=== PATIENT | female | born 2000 | race Two or more races ===

== ENCOUNTER 2024-03-27 08:18 | Emergency (ER) | payer MEDICAID, SELFPAY ==
[2024-03-27 08:19] VITALS: BMI 43.5
--- NOTE | 2024-03-27 08:26 | XR_ITS ---
Examination: Complete OB ultrasound, less than 14 weeks, transabdominal Date and time of exam: March 27, 2024 0908 hours INDICATIONS: Onset pelvic cramping today Technique: Obstetrical ultrasound images less than 14 weeks performed via transabdominal imaging Findings: Uterus 6.9 x 3.6 x 4.7 cm No uterine mass or intrauterine gestation Endometrial stripe 1.7 cm Mild fluid in the cul-de-sac Right ovary 2.3 x 1.7 x 2.4 cm arterial flow small follicles Left ovary 2.5 x 2.6 x 2.4 cm arterial flow small follicles IMPRESSION: No uterine mass or intrauterine gestation Negative for ovarian torsion
[2024-03-27 09:00] LABS: Collection Type, Urine Clean Catch
[2024-03-27 09:08] LABS: Basophils % (Auto) 0 % (0-2.5); Eosinophils # (Auto) 0.1 Thou/mm3 (0.0-0.5); Eosinophils % (Auto) 1 % (0-10); Hematocrit 40.2 % (36.0-46.0); Hemoglobin 13.6 g/dL (12.0-16.0); Immature Granulocytes % (Auto) 0 % (0-0); Immature Granulocytes Auto 0.03 Thou/mm3 (0.00-0.00); Lymphocytes # (Auto) 3.5 Thou/mm3 (1.0-4.8); Lymphocytes % (Auto) 39 % (10-50); Mean Corpuscular HGB Conc 33.8 g/dl (31.0-37.0); Mean Corpuscular Volume 89 fL (80-100); Monocytes # (Auto) 0.5 Thou/mm3 (0.0-0.8); Monocytes % (Auto) 6 % (0-12); Neutrophils # (Auto) 4.8 Thou/mm3 (1.8-7.7); Neutrophils % (Auto) 54 % (37-80); Nucleated Red Blood Cell % 0 /100 WBC (0); Platelet Count 330 Thou/mm3 (140-440); RDW Standard Deviation 44.3 fL (36.4-46.3); Red Blood Count 4.53 Miln/mm3 (4.00-5.20); White Blood Count 8.9 Thou/mm3 (3.6-11.0)
--- NOTE | 2024-03-27 09:20 | XR_ITS ---
Examination: OB Transvaginal ultrasound of the pelvis, complete Technique: Transvaginal sonographic images pelvis performed using arias scale imaging Exam date and time: March 27, 2024 0922 hours INDICATIONS: Onset pelvic cramping today FINDINGS: Uterus 7.5 x 4.0 x 5.3 cm Endometrial stripe 15 mm No uterine mass or intrauterine gestation Right ovary 2.4 x 1.9 x 1.7 cm arterial flow Left ovary 2.6 x 2.1 x 2.1 cm arterial flow Mild fluid in the cul-de-sac IMPRESSION: No uterine mass or intrauterine gestation Negative for ovarian torsion.
[2024-03-27 09:27] LABS: Bacteria,Urine Rare; Bilirubin,Urine Negative (Negative); Blood,Urine Negative (Negative); Clarity,Urine Clear (Clear/Hazy); Color,Urine Colorless (Lt Yel-Yel); Glucose, Urine Negative (Negative); Hyaline Casts,Urine < 1 /hpf (0-1); Ketones,Urine Negative (Negative); Leukocyte Esterase,Urine Negative (Negative); Nitrite,Urine Negative (Negative); PH,Urine 6.5 (5.0-7.0); Protein,Urine Negative (Neg - Trace); RBC,Urine 2 /hpf (0-3); Specific Gravity,Urine 1.007 (1.001-1.035); Squamous Epithelial Cell,Urine 1 /hpf (0-5); Urobilinogen,Urine Negative mg/dL (0.0-1.0); WBC,Urine 1 /hpf (0-5)
[2024-03-27 09:29] LABS: Alanine Aminotransferase 20 U/L (10-49); Albumin, Serum 4.2 gm/dL (3.5-5.0); Albumin/Globulin Ratio 1.5 (1.2-2.2); Alkaline Phosphatase 67 U/L (46-116); Anion Gap 7 (7-16); Aspartate Amino Transferase 17 U/L (0-34); BUN/Creatinine Ratio 11 Ratio (12-20); Beta HCG,Quantitative 438 mIU/mL (<5.0); Bilirubin,Total 0.3 mg/dL (0.3-1.2); Blood Urea Nitrogen 9 mg/dL (9-23); Calcium 9.6 mg/dL (8.3-10.6); Calcium (Corrected) 9.6 mg/dL (8.5-10.1); Carbon Dioxide 24.9 mMol/L (20.0-31.0); Chloride 106 mMol/L (98-107); Creatinine (Component) 0.8 mg/dL (0.6-1.3); Globulin 2.8 gm/dL (2.3-3.5); Glucose 96 mg/dL (74-106); Osmolality,Calculated 274 (275-295); Sodium 138 mMol/L (136-145); eGFR > 60 See Note
--- NOTE | 2024-03-27 10:08 | EDNOTE_ITS ---
ED Abdominal Pain RME/HPI General Chief Complaint: Abdominal Pain Stated complaint: 5 WEEKS PREG ABD CRAMPING Time seen by provider: 03/27/24 08:20 Arrival date/time: 03/27/24 08:18 23-year-old female G1, presents emergency department today complains of pelvic cramping without bleeding patient for symptoms ongoing x 1 day Limitations: no limitations Related Data Previous Rx's ?Medication ?Instructions ?Recorded Phenazopyridine * (PYRIDIUM *) 200 mg PO TIDPC #6 tabs 11/11/16 ibuprofen 600 mg tablet 600 mg PO Q8HR PRN PAIN #30 tabs 11/11/16 ibuprofen 800 mg tablet (IBU) 800 mg PO Q8H #20 tabs 04/02/23 Allergies Allergy/AdvReac Type Severity Reaction Status Date / Time amoxicillin Allergy Severe Hives Verified 03/27/24 08:23 Review of Systems Review of Systems Systems Reviewed: All systems reviewed, normal except as documented Constitutional Constitutional: Reports system reviewed and no additional complaints, except as documented, Denies fever(s) and Denies headache(s) Eyes Eyes: Reports system reviewed and no additional complaints, except as documented and Denies blurry vision ENT Ears, Nose, Mouth, and Throat: Reports system reviewed and no additional complaints, except as documented, Denies headache(s), Denies nasal congestion and Denies nasal discharge Cardiovascular Cardiovascular: Reports system reviewed and no additional complaints, except as documented, Denies chest pain and Denies dyspnea Respiratory Respiratory: Reports system reviewed and no additional complaints, except as documented, Denies chest congestion, Denies cough and Denies dyspnea Gastrointestinal Gastrointestinal: Reports system reviewed and no additional complaints, except as documented and Denies abdominal pain Genitourinary Genitourinary: Reports system reviewed and no additional complaints, except as documented and Reports other (Pelvic pain) Integumentary/Breasts Skin/Breast: Reports system reviewed and no additional complaints, except as documented and Denies rash Neurologic Neurologic: Reports system reviewed and no additional complaints, except as documented, Reports as per HPI and Denies headache(s) Past Medical History Past Medical History NEUROLOGIC: Negative Neurological Disorders CARDIAC: Negative Cardiac Disorders ED Exam General Limitations: Present no limitations General appearance: Present alert and in no apparent distress Head Head exam: Present atraumatic Eye Eye exam: Present normal appearance, PERRL and EOMI ENT ENT exam: Present normal exam, normal oropharynx and mucous membranes moist Neck Neck exam: Present normal inspection, full ROM and trachea midline Chest Chest inspection: Present normal inspection and symmetric chest wall rise Respiratory Respiratory exam: Present normal lung sounds bilaterally Cardiovascular Cardiovascular exam: Present regular rate, normal rhythm and normal heart sounds Abdominal Exam Abdominal exam: Present soft and normal bowel sounds Extremities Exam Extremities exam: Present normal inspection and full ROM Back Exam Back exam: Present normal inspection and full ROM Neurological Exam Neurological exam: Present alert, oriented X3 and CN II-XII intact Psychiatric Psychiatric exam: Present normal affect and normal mood Skin Skin exam: Present warm, dry, intact and normal color Course Quality Measures none Orders Category Date Time Status US OB <= 14 weeks fetus Stat Exams 03/27/24 08:26 Completed US OB transvaginal Stat Exams 03/27/24 09:20 Completed ABO/RH Type Stat Lab 03/27/24 08:42 Completed Beta HCG,Quantitative Stat Lab 03/27/24 08:42 Completed CBC Stat Lab 03/27/24 08:42 Completed Comprehensive Metabolic Panel Stat Lab 03/27/24 08:42 Completed UA [Urinalysis] Stat Lab 03/27/24 08:40 Completed Urine Culture Stat Lab 03/27/24 08:40 Received Vital Signs Vital signs: O2 saturation 98% room air within normal limits Abdominal Pain MDM MDM Narrative MDM Narrative:: 23-year-old female G1, presents emergency department today complains of pelvic cramping without bleeding patient for symptoms ongoing x 1 day On exam patient well-appearing patient does not appear ill or toxic patient does not appear in acute distress On exam patient well-appearing patient denies any active bleeding patient hemodynamically stable Lab work and ultrasound obtained Ultrasound does not show any evidence of at this time but it may be because she is too early or she is having a miscarriage Baseline hCG obtained Patient is ready to have repeat hCG levels in 3 to 4 days for increased pain or any bleeding return immediately Patient data External records reviewed:: [facility] previous records Clinical information provided by:: patient Social determinants that could affect healthcare access:: none Patient has the following chronic illnesses:: None How is presenting disease/condition affected by chronic disease/condition?: no chronic disease Evaluation data The following diagnostics were reviewed and interpreted by me:: lab results and radiology exam(s) Lab and/or radiology exams considered but not ordered:: Labs and radiology obtained Interpretation Summary: Reviewed by me Medications / Prescriptions Medications or Prescriptions considered but not ordered:: Given no meds Medication administrations:: Given no meds Consultations Consultation(s) initiated? (list below): No Diagnosis Differential diagnosis abdominal pain: abdominal pain, gastroenteritis and other (Missed , threatened ) Most likely diagnosis given after review of the tests above:: Threatened Admission Indicated Admission indicated?: not indicated Admission Request Was there a request for admission?: No Disposition Plan Disposition Plan: Discharge Discharge Attestation Discharge Attestation: The patient and all family members were given an opportunity to ask questions an d understood the discharge instructions. Discharge instructions specifically effects, indications for sooner follow up or return to the emergency department, and the expected course of current diagnosis. Patient condition: Stable Discharge Plan Plan Patient Disposition: HOME (Self Care) Disposition Comment: Stable Prescriptions/Referrals Prescriptions/Med Rec: No Action ibuprofen 600 MG tablet 600 mg PO Q8HR PRN (Reason: PAIN) Qty: 30 0RF Phenazopyridine * (PYRIDIUM *) 200 MG tablet 200 mg PO TIDPC Qty: 6 0RF ibuprofen [IBU] 800 mg tablet 800 mg PO Q8H Qty: 20 0RF Referrals: Nawaf Child PA-C [Primary Care Provider] - 03/28/24 Problem List Clinical Impression: Pelvic pain affecting Patient/Caregiver Discharge Instructions Education Materials: Communicating About Pain Additional Instructions: Please repeat hCG level in 3 to 4 days for worsening symptoms return immediately Print Language: Uzbek Stand Alone Forms: Debbie Award Info., Work/School Release, Patient Portal Info Letter MARLEE/SOWMYA Supervising Physician VERNA Supervising Physician: Dr Vitale
[2024-03-27 10:19] VITALS: BP 130/67; PULSE 83; RESP 18; TEMP 37; O2SAT 99
== END 2024-03-27 10:22 | disposition home or self-care (01) ==
PROVIDERS: Nurse Practitioner Primary Care; Emergency Provider Emergency Medicine; PCP Physician Assistant
DX: O26.891 Other specified pregnancy related conditions, first trimester (principal); R10.2 Pelvic and perineal pain; Z3A.01 Less than 8 weeks gestation of pregnancy
CPT/HCPCS: 36415; 76801; 76817; 80053; 81001; 84702; 85025; 86900; 86901; 87086; 99284

== ENCOUNTER 2024-03-28 16:04 | Emergency (ER) | payer MEDICAID, SELFPAY ==
[2024-03-28 16:17] VITALS: BP 138/83; PULSE 77; RESP 20; TEMP 37.1; O2SAT 99; BMI 44.9
--- NOTE | 2024-03-28 16:24 | EDNOTE_ITS ---
ED OB Contraction Preg RMI/HPI General Chief complaint: Vaginal Bleeding Stated complaint: 5 weeks OB, vaginal bleeding Time Seen by Provider: 03/28/24 16:14 Arrival date/time: 03/28/24 16:04 23-year-old female approximately 5 weeks presents the emergency department complains of vaginal spotting patient was seen by myself yesterday patient reports she was nervous that she had an episode of bleeding today patient denies any current bleeding Limitations: no limitations Related Data Previous Rx's ?Medication ?Instructions ?Recorded Phenazopyridine * (PYRIDIUM *) 200 mg PO TIDPC #6 tabs 11/11/16 ibuprofen 600 mg tablet 600 mg PO Q8HR PRN PAIN #30 tabs 11/11/16 ibuprofen 800 mg tablet (IBU) 800 mg PO Q8H #20 tabs 04/02/23 Allergies Allergy/AdvReac Type Severity Reaction Status Date / Time amoxicillin Allergy Severe Hives Verified 03/27/24 08:23 Review of Systems Review of Systems Systems Reviewed: All systems reviewed, normal except as documented Constitutional Constitutional: Reports system reviewed and no additional complaints, except as documented, Denies fever(s) and Denies headache(s) Eyes Eyes: Reports system reviewed and no additional complaints, except as documented and Denies blurry vision ENT Ears, Nose, Mouth, and Throat: Reports system reviewed and no additional complaints, except as documented, Denies headache(s), Denies nasal congestion and Denies nasal discharge Cardiovascular Cardiovascular: Reports system reviewed and no additional complaints, except as documented, Denies chest pain and Denies dyspnea Respiratory Respiratory: Reports system reviewed and no additional complaints, except as documented, Denies chest congestion, Denies cough and Denies dyspnea Gastrointestinal Gastrointestinal: Reports system reviewed and no additional complaints, except as documented and Denies abdominal pain Genitourinary Genitourinary: Reports system reviewed and no additional complaints, except as documented and Reports abnormal vaginal bleeding Integumentary/Breasts Skin/Breast: Reports system reviewed and no additional complaints, except as documented and Denies rash Neurologic Neurologic: Reports system reviewed and no additional complaints, except as documented, Reports as per HPI and Denies headache(s) Past Medical History Past Medical History NEUROLOGIC: Negative Neurological Disorders CARDIAC: Negative Cardiac Disorders Social History SMOKING STATUS: Former smoker ED Exam General Limitations: Present no limitations General appearance: Present alert and in no apparent distress Head Head exam: Present atraumatic Eye Eye exam: Present normal appearance, PERRL and EOMI ENT ENT exam: Present normal exam, normal oropharynx and mucous membranes moist Neck Neck exam: Present normal inspection, full ROM and trachea midline Chest Chest inspection: Present normal inspection and symmetric chest wall rise Respiratory Respiratory exam: Present normal lung sounds bilaterally Cardiovascular Cardiovascular exam: Present regular rate, normal rhythm and normal heart sounds Abdominal Exam Abdominal exam: Present soft and normal bowel sounds Extremities Exam Extremities exam: Present normal inspection and full ROM Back Exam Back exam: Present normal inspection and full ROM Neurological Exam Neurological exam: Present alert, oriented X3 and CN II-XII intact Psychiatric Psychiatric exam: Present normal affect and normal mood Skin Skin exam: Present warm, dry, intact and normal color Course Quality Measures none Vital Signs Vital signs: Vital Signs Temperature 98.8 F 03/28/24 16:17 Pulse Rate 77 03/28/24 16:17 Respiratory Rate 20 03/28/24 16:17 Blood Pressure 138/83 H 03/28/24 16:17 Pulse Oximetry (%) 99 03/28/24 16:17 Oxygen Delivery Method Room Air 03/28/24 16:17 O2 saturation 99% room air within normal limits Vaginal Bleeding MDM Narrative MDM Narrative: 23-year-old female approximately 5 weeks presents the emergency department complains of vaginal spotting patient was seen by myself yesterday patient reports she was nervous that she had an episode of bleeding today patient denies any current bleeding Patient data External records reviewed:: [facility] previous records Clinical information provided by:: patient Social determinants that could affect healthcare access:: none Patient has the following chronic illnesses:: None How is presenting disease/condition affected by chronic disease/condition?: no chronic disease Evaluation data The following diagnostics were reviewed and interpreted by me:: other (specify) (N/A) Lab and/or radiology exams considered but not ordered:: Consider not ordered Interpretation Summary: N/A Medications / Prescriptions Medications or Prescriptions considered but not ordered:: No meds Medication administrations:: No meds Consultations Consultation(s) initiated? (list below): No Diagnosis Vaginal Bleeding Differential Diagnosis: missed and threatened Most likely diagnosis given after review of the tests above:: Threatened Admission Indicated Admission indicated?: not indicated Admission Request Was there a request for admission?: No Disposition Plan Disposition Plan: Discharge Discharge Attestation Discharge Attestation: The patient and all family members were given an opportunity to ask questions and understood the discharge instructions. Discharge instructions specifically effects, indications for sooner follow up or return to the emergency department, and the expected course of current diagnosis. Patient condition: Stable Discharge Plan Plan Patient Disposition: HOME (Self Care) Disposition Comment: Stable Prescriptions/Referrals Prescriptions/Med Rec: No Action ibuprofen 600 MG tablet 600 mg PO Q8HR PRN (Reason: PAIN) Qty: 30 0RF Phenazopyridine * (PYRIDIUM *) 200 MG tablet 200 mg PO TIDPC Qty: 6 0RF ibuprofen [IBU] 800 mg tablet 800 mg PO Q8H Qty: 20 0RF Problem List Clinical Impression: Threatened Patient/Caregiver Discharge Instructions Education Materials: ED Possible Miscarriage ... Additional Instructions: Please have repeat lab work and ultrasound in 3 to 4 days for worsening symptoms return immediately Print Language: Wolof Stand Alone Forms: Debbie Award Info., Patient Portal Info Letter PA/[employer] Supervising Physician MARLEE/SOWMYA Supervising Physician: Dr Vitale
== END 2024-03-28 17:29 | disposition home or self-care (01) ==
LOC: SERX 16:33
PROVIDERS: Emergency Provider Emergency Medicine; PCP Physician Assistant
DX: O20.0 Threatened abortion (principal); Z3A.01 Less than 8 weeks gestation of pregnancy
CPT/HCPCS: 99281

== ENCOUNTER 2024-06-24 10:38 | Emergency (ER) | payer MEDICAID, SELFPAY ==
[2024-06-24 11:30] VITALS: BP 112/74; PULSE 74; RESP 18; TEMP 37.1; O2SAT 100; BMI 47.5
--- NOTE | 2024-06-24 11:43 | XR_ITS ---
Examination: Complete OB ultrasound greater than 14 weeks Date and time of exam: June 24, 2024 at 1150 hrs. Indications: Pelvic pain beginning 7 days ago Findings: Viable intrauterine single fetus with single amniotic sac presentation breech Cardiac motion 155 BPM Placenta fundal grade 1 Umbilical cord insertion 3 vessel Amniotic fluid normal spine maternal right Cervix 3.1 cm Right ovary 2.3 cm arterial flow Left ovary 2.7 cm arterial flow. Composite estimated gestational age based on BPD, head circumference, abdominal circumference, femur length is 17 weeks 2 days Estimated weight 174 g. Survey of intracranial anatomy, spinal anatomy, abdominal anatomy, four-chamber heart performed with no abnormalities identified. Impression: Viable intrauterine gestation breech presentation No placental abruption.
--- NOTE | 2024-06-24 11:44 | EDNOTE_ITS ---
<Statement entered by Magdalene Day MD - 06/24/24 17:35> As co-signing physician, I was present and available for consult prn. I concur with the plan and care as documented by the midlevel provider. ED Abdominal Pain RME/HPI General Chief Complaint: Abdominal Pain Stated complaint: LOWER ABD PAIN Time seen by provider: 06/24/24 11:29 Arrival date/time: 06/24/24 10:38 RME / HPI RME / HPI narrative: 23-year-old female patient came in for evaluation regarding pelvic pain. Patient's been having pelvic pain for 1 week, described as sharp pain, severity moderate. Patient is 1 para 0, about 17 weeks . Patient denies any vaginal spotting or vaginal bleeding. Denies any dysuria frequency. Patient have not seen any FINANCIAL MANAGER. Patient denies any dysuria, frequency, constipation or diarrhea. Denies any vomiting denies any fever. Related Data Previous Rx's ?Medication ?Instructions ?Recorded Phenazopyridine * (PYRIDIUM *) 200 mg PO TIDPC #6 tabs 11/11/16 ibuprofen 600 mg tablet 600 mg PO Q8HR PRN PAIN #30 tabs 11/11/16 ibuprofen 800 mg tablet (IBU) 800 mg PO Q8H #20 tabs 0 04/02/23 nitrofurantoin 100 mg PO Q12H 7 days #14 ca ps 06/24/24 monohydrate/macrocrystals 100 mg capsule (Macrobid) Allergies Allergy/AdvReac Type Severity Reaction Status Date / Time amoxicillin Allergy Severe Hives Verified 03/27/24 08:23 Review of Systems Review of Systems Narrative Review of Systems: Review of system reviewed and within normal limits except mentioned in HPI ED Exam Narrative Physical exam: VITAL SIGNS: Reviewed. GENERAL APPEARANCE: Alert and interactive, follows commands, no acute distress,, morbid obesity HEAD AND FACE: Non-traumatic. ENT: PERRL, pink conjunctivitis, eyelid no trauma, Mucous membrane moist. NECK: Supple, nontender, no nuchal rigidity. CHEST: No tenderness, no crepitus, no paradoxical movement, no retractions. LUNGS: Clear, well ventilated, symmetric, no rales, no wheezing, no ronchi, no stridor, good breath sounds bilaterally. HEART: Regular rate, regular rhythm, no murmur, no gallops. ABDOMEN: Soft, positive bowel sounds, nondistended, no guarding, suprapubic tenderness, no rebound, no masses, RECTAL: Deferred. GENITAL: Deferred. NEUROLOGICAL: Gross motor function intact sensory function intact, Appropriate for age. MUSCULOSKELETAL: low back nontender, full range of motion. EXTREMITIES: Nontender, full range of motion. SKIN: Color pink, dry, no rash, no lacerations, no abrasions, no contusions. LYMPHATICS: Deferred. Course Quality Measures none Orders Category Date Time Status US OB >= 14 weeks Fetus Stat Exams 06/24/24 11:43 Taken ABO/RH Type Stat Lab 06/24/24 12:44 Completed Basic Metabolic Panel Stat Lab 06/24/24 12:44 Completed Beta HCG,Quantitative Stat Lab 06/24/24 12:44 Completed CBC Stat Lab 06/24/24 12:44 Completed Urinalysis Stat Lab 06/24/24 13:11 Completed Acetaminophen Tab [Tylenol ES Tab] Med 06/24/24 11:44 Discontinued 1,000 mg PO X1 ONE Vital Signs Vital signs: Vital Signs Temperature 98.7 F 06/24/24 11:30 Pulse Rate 74 06/24/24 11:30 Respiratory Rate 18 06/24/24 11:30 Blood Pressure 112/74 06/24/24 11:30 Pulse Oximetry (%) 100 06/24/24 11:30 Oxygen Delivery Method Room Air 06/24/24 11:30 Abdominal Pain MDM MDM Narrative MDM Narrative:: 23-year-old female patient came in for evaluation regarding pelvic pain. Patient's been having pelvic pain for 1 week, described as sharp pain, severity moderate. Patient is 1 para 0, about 17 weeks . Patient denies any vaginal spotting or vaginal bleeding. Denies any dysuria frequency. Patient have not seen any FINANCIAL MANAGER. Patient denies any dysuria, frequency, constipation or diarrhea. Denies any vomiting denies any fever. Laboratory workup significant for UTI otherwise unremarkable. Ultrasound of the showed single live intrauterine gestation about 7 2 weeks, heart rate of 155 bpm, results discussed with the patient. Patient appears nontoxic and hemodynamically stable. Patient discharged home and instructed to follow-up with primary care provider in 24 to 48 hours. Instructed to return to the emergency department immediately if worsening of symptoms Patient data External records reviewed:: None Clinical information provided by:: patient and family Social determinants that could affect healthcare access:: none Patient has the following chronic illnesses:: None How is presenting disease/condition affected by chronic disease/condition?: no chronic disease Evaluation data The following diagnostics were reviewed and interpreted by me:: lab results and radiology exam(s) Lab and/or radiology exams considered but not ordered:: None Interpretation Summary: See results in [facility] Medications / Prescriptions Medications or Prescriptions considered but not ordered:: None Medication administrations:: Medication Administration History Discontinued Medications Acetaminophen (Acetaminophen 500 Mg Tablet) 1,000 mg PO X1 ONE Stop: 06/24/24 11:45 Last Admin: 06/24/24 12:22 Dose: 1,000 mg Documented By: MARIA Tylenol Consultations Consultation(s) initiated? (list below): No Diagnosis Differential diagnosis abdominal pain: abdominal pain and other (Pelvic pain, UTI, ) Most likely diagnosis given after review of the tests above:: Pelvic pain, UTI, Admission Indicated Admission indicated?: not indicated Admission Request Was there a request for admission?: No Disposition Plan Disposition Plan: Discharge Discharge Attestation Discharge Attestation: The patient and all family members were given an opportunity to ask questions and understood the discharge instructions. Discharge instructions specifically effects, indications for sooner follow up or return to the emergency department, and the expected course of current diagnosis. Patient condition: Stable Discharge Plan Plan Patient Disposition: HOME (Self Care) Disposition Comment: stable Prescriptions/Referrals Prescriptions/Med Rec: New nitrofurantoin monohyd/m-cryst [Macrobid] 100 mg capsule 100 mg PO Q12H 7 Days Qty: 14 0RF Rx Instructions: must administer with a meal/food No Action ibuprofen 600 MG tablet 600 mg PO Q8HR PRN (Reason: PAIN) Qty: 30 0RF Phenazopyridine * (PYRIDIUM *) 200 MG tablet 200 mg PO TIDPC Qty: 6 0RF ibuprofen [IBU] 800 mg tablet 800 mg PO Q8H Qty: 20 0RF Referrals: Hernán Chadwick [Primary Care Provider] - In 1 week Problem List Clinical Impression: Pelvic pain, , UTI (urinary tract infection) Patient/Caregiver Discharge Instructions Discharge Activity: activity as tolerated Education Materials: Understanding Urinary Tract ... Additional Instructions: Thank you for the opportunity for serving you today. You are stable for discharged . You are advised to: Follow-up with your FINANCIAL MANAGER next week Return to ED for worsening of symptoms Increase oral fluids Take medication as prescribed Pelvic rest no sex for 1 week or until cleared by FINANCIAL MANAGER Print Language: Malaysian Stand Alone Forms: Debbie Award Info., Work/School Release, Patient Portal Info Letter
[2024-06-24] MEDS: ACETAMINOPHEN 500 MG TABLET 1000 MG PO (12:22)
[2024-06-24 13:16] LABS: Basophils % (Auto) 0 % (0-2.5); Eosinophils # (Auto) 0.1 Thou/mm3 (0.0-0.5); Eosinophils % (Auto) 1 % (0-10); Hematocrit 35.4 % (36.0-46.0); Hemoglobin 12.3 g/dL (12.0-16.0); Immature Granulocytes % (Auto) 0 % (0-0); Immature Granulocytes Auto 0.02 Thou/mm3 (0.00-0.00); Lymphocytes # (Auto) 2.1 Thou/mm3 (1.0-4.8); Lymphocytes % (Auto) 28 % (10-50); Mean Corpuscular HGB Conc 34.7 g/dl (31.0-37.0); Mean Corpuscular Hemoglobin 30.4 pg (25.0-35.0); Mean Corpuscular Volume 87 fL (80-100); Monocytes # (Auto) 0.3 Thou/mm3 (0.0-0.8); Monocytes % (Auto) 4 % (0-12); Neutrophils # (Auto) 4.9 Thou/mm3 (1.8-7.7); Neutrophils % (Auto) 66 % (37-80); Nucleated Red Blood Cell % 0 /100 WBC (0); Platelet Count 232 Thou/mm3 (140-440); RDW Standard Deviation 44.9 fL (36.4-46.3); Red Blood Count 4.05 Miln/mm3 (4.00-5.20); White Blood Count 7.5 Thou/mm3 (3.6-11.0)
[2024-06-24 13:19] LABS: Collection Type, Urine Clean Catch
[2024-06-24 13:44] LABS: Bacteria,Urine 3+; Bilirubin,Urine Negative (Negative); Blood,Urine Negative (Negative); Clarity,Urine Turbid (Clear/Hazy); Color,Urine Lt-Yellow (Lt Yel-Yel); Glucose, Urine Negative (Negative); Ketones,Urine 2+ (Negative); Leukocyte Esterase,Urine Positive (Negative); Nitrite,Urine Negative (Negative); PH,Urine 6.5 (5.0-7.0); Protein,Urine Negative (Neg - Trace); RBC,Urine 2 /hpf (0-3); Specific Gravity,Urine 1.014 (1.001-1.035); Squamous Epithelial Cell,Urine 3 /hpf (0-5); Urobilinogen,Urine Negative mg/dL (0.0-1.0); WBC,Urine 4 /hpf (0-5)
[2024-06-24 14:01] LABS: Anion Gap 8 (7-16); BUN/Creatinine Ratio 10 Ratio (12-20); Beta HCG,Quantitative 25556 mIU/mL (<5.0); Blood Urea Nitrogen 6 mg/dL (9-23); Calcium 8.6 mg/dL (8.3-10.6); Carbon Dioxide 23.5 mMol/L (20.0-31.0); Chloride 109 mMol/L (98-107); Creatinine (Component) 0.6 mg/dL (0.6-1.3); Estimated Creatinine Clearance 161.5 mL/min (>60); Glucose 133 mg/dL (74-106); Osmolality,Calculated 279 (275-295); Potassium 3.7 mMol/L (3.4-5.1); Sodium 140 mMol/L (136-145); eGFR > 60 See Note
== END 2024-06-24 16:40 | disposition home or self-care (01) ==
PROVIDERS: Nurse Practitioner Family; Emergency Provider Emergency Medicine; PCP Internal Medicine Hematology & Oncology
DX: O23.42 Unspecified infection of urinary tract in pregnancy, second trimester (principal); N39.0 Urinary tract infection, site not specified; Z3A.17 17 weeks gestation of pregnancy
CPT/HCPCS: 36415; 76805; 80048; 81001; 84702; 85025; 86900; 86901; 99284; A9270

== ENCOUNTER 2024-07-18 09:08 | Outpatient (AMB) | payer MEDICAID, SELFPAY ==
[2024-07-18 09:27] VITALS: BP 112/76; PULSE 76; RESP 18; TEMP 36.2; O2SAT 99; BMI 47.3
--- NOTE | 2024-07-18 09:27 | AMB.OBINITIA ---
Vital Signs 07/18/24 09:27 Height 1.52 m Height Method Stated Weight 109.429 kg Weight Measurement Method Standing Scale BMI 47.3 BP 112/76 Blood Pressure Source Automatic Cuff Blood Pressure Location Left Upper Arm Position Sitting Respiration 18 Pulse 76 Pulse Source Monitor Temp 97.2 F Temp Source Oral Pulse Oximetry (%) 99 Oxygen Delivery Method Room Air Allergies/Home Meds Allergies & Medications Allergies amoxicillin Allergy (Severe, Verified 08/17/24 09:55) Hives Intake Visit Data Collection New Patient or Established: Established Patient (seen at [facility] within 3 years) Reason for Visit:: First visit for , history of severe nausea and vomiting in early , current occasional vomiting with spicy or seasoned foods, heartburn Seen by Clinical Staff ONLY (RN/MA): No Client Success Director Required: No Do You Feel Safe at Home: Yes Authorities Contacted: N/A PCP or OBGYN visit in last 3 months: Yes Date of Last PCP or OBGYN visit: 06/24/24 Hx Now: Yes Are you currently on any form of Control: No Last menstrual period: 02/19/24 Pain Present Currently: No Pain Scale Used: [place]/Numerical Pain scale:: 0 Smoking Status Smoking Status: Never smoker Questionnaires Covid-19 Vaccine Questionnaire Has patient been vacinated for Covid-19 Have you been vacinated for Covid-19: Yes PHQ-9 PHQ-2 Over the last 2 weeks, how often have you been bothered by any of the following problems? 1. Little interest or pleasure in doing things: not at all 2. Feeling down, depressed, or hopeless: not at all Total score: 0 PHQ-9 3. Trouble falling or staying asleep, or sleeping too much: Not at all 4. Feeling tired or having little energy: Not at all 5. Poor appetite or overeating: Not at all 6. Feeling bad about yourself - or that you are a failure or have let yourself or your family down: Not at all 7. Trouble concentrating on things, such as reading the newspaper or watching television: Not at all 8. Moving or speaking so slowly that other people could have noticed? - Or the opposite - being so fidgety or restless that you have been moving around a lot more than usual: not at all 9. Thoughts that you would be better off or of hurting yourself in some way: Not at all Total score: 0 If you checked off any problems, how difficult have these problems made it for you to do your work, take care of things at home, or get along with other people?: not difficult at all Source: Developed by Drs. Nikhil Zimmer, Shazia Cancino, Kole Rojas and colleagues, with an educational wendie from [employer]. Depression screen completed yes Social History Living Situation History Marital Status: Single Lives With: Family Housing: House Tobacco History Smoking Status: Never smoker Second Hand Smoke Exposure: No Alcohol History Alcohol Intake: Former Domestic Abuse History Do You Feel Safe at Home: Yes Past Medical History Past Medical History Have you ever been diagnosed with any of the following: History of Present Illness HPI Narrative Terri CADET is a woman presenting for her first obstetric visit. Her last menstrual period was on February 18 or 2023, making her approximately 21 weeks and 3 days with an estimated due date of November 25, 2024. The patient reports experiencing severe nausea and vomiting early in her , stating she couldn't eat or drink anything and had constant vomiting. These symptoms have since improved, with the patient now reporting that she hardly vomit[s]. However, she still experiences occasional vomiting triggered by spicy or seasoned foods, which also cause heartburn. The patient mentions experiencing really bad pains at times, which have led her to visit the hospital 2-3 times. These episodes have been severe enough to affect her ability to work, prompting her to request documentation for her employer. This is the patient's first . She denies any current health issues or ongoing treatments at the time she became . The patient reports a history of high cholesterol years ago but no other significant medical history. She denies a history of diabetes or thyroid problems. The patient is not currently taking vitamins. The patient had a previous ultrasound at a different facility where she was informed the fetus is male, but no due date was provided at that time. She reports that her regular doctor had given her a due date of December 04, 2024. Obstetric History - GTPAL: G1 T0 L0 - Current : - Gestational age: 21 weeks and 5 days (confirmed by ultrasound) - Estimated due date: November 25, 2024 Medical History - High cholesterol (years ago) - Multiple emergency room visits (2-3 times) for severe pain during current Social History - Occupation: Employed, specific job not mentioned - Living Situation: Lives close to the clinic (implied by This is closer for you ) Review of Systems General: Positive for fatigue (implied by constant vomiting in early ). Gastrointestinal: Positive for nausea, vomiting (improved), and heartburn. Negative for current constant vomiting. Musculoskeletal: Positive for occasional severe pain affecting mobility. Estimated Due Date Summary LMP 02/18/2025 PETER by LMP 11/25/2024 Ultrasound #1 07/18/2024, 21w5d (bedside) PETER by US #1 11/23/2024 Final PETER 11/25/2024 Basis for Final PETER LMP OB Initial Visit OB Flowsheet OB Flowsheet Initial Weight: Not Recorded Date <del>?</del> EGA Weight BP Alb Glu CTX Pres Fundal ht FHR Mov Dilation Station Effacement Hx Notes Visit Note 07/18/24 <del>?</del> 21w 5d 109.429 kg 112/76 Estimated Due Date Summary LMP104/20/2024EDD by LMP11/25/2024 Ultrasound #104/, 21w5d (bedside)PETER by US #108 Final EDD11/25/2024asis for Final EDDLMP Menstrual History Menstrual reliability: approximate (month known) Flow: normal Menstrual regularity: regular Monthly: Yes Age at menarche: 7 On control pills at conception: No OB History : 1 Para: 0 Hx # Pregnancies: 0 Hx Total # of Abortions (Spontaneous & Elective): 0 # of Living Children: 0 Infection History & Risk Evaluation History of STDs: none HIV risk evaluation: low risk Hepatitis B risk evaluation: low risk Patient or partner has history of Genital Herpes: No Varicella/chicken pox status: immunized Genetic Screening & History Genetic Screening/Teratology Counseling - Includes patient, baby's father, or anyone in either family with: 1. Patient's age 35 years or older as of estimated date of delivery: No 2. Thalassemia (Citizen Of The [place], Beninese, Mediterranean, or Background); MCV less than 80: No 3. Neural Tube Defect (Meningomyelocele, Spina Bifida, or Anencephaly): No 4. Congenital Heart Defect: No 5. Down Syndrome: No 6. Gt-Sachs (Ashkenazi Denominational, Cajun, M[place]ese [place]): No 7. Angela Disease (Ashkenazi Denominational): No 8. Familial Dysautonomia (Ashkenazi Denominational): No 9. Sickle Cell Disease or Trait (): No 10. Hemophilia or other blood disorders: No 11. Muscular Dystrophy: No 12. Cystic Fibrosis: No 13. [place]'s Chorea: No 14. Mental Retardation/Autism: No 15. Other inherited genetic or chromosomal disorder: No 16. Maternal Metabolic Disorder (EG,TYPE 1 Diabetes, PKU): No 17. Patient or baby's father had a child with defects not listed above: No 18. Recurrent loss or a stillbirth: No 19. Medications (including supplements, vitamins, herbs or otc drugs)/illicit/recreational drugs/alcohol since last menstrual period: No 20. Any other: No Infection History 1. Live with someone with TB or exposed to TB: No 2. Rash or viral illness since last menstrual period: No 3. Hepatitis B,C: No Other (see comments) Source: [employer] Review of Systems Review of Systems Systems Reviewed: All systems reviewed, normal except as documented Exam General General Appearance: alert, in no apparent distress and healthy appearing Head Head exam: atraumatic Neck Neck exam: Present normal inspection and trachea midline Chest Chest inspection: Present normal inspection and symmetric chest wall rise External exam: Present normal external exam; Absent tenderness Neuro Neurological exam: Present oriented X3 Psych Psychiatric exam: Present normal affect and normal mood Results Objective Imaging: - Ultrasound (07/18/2024): - Gestational age: 21 weeks and 5 days - sex: Male - anatomy: Overall normal appearance - activity: Swallowing observed Office Procedures OB Clinic LOC & Office Proc's Nursing/Assessment Patient Status: Established Patient OB Clinic Nursing Assessment: BP Monitoring, Medication Reconciliation, Update PMH in EMR and Vital Signs OB Clinic Coordination of Care: Consent,records obtained, informed consent, Education Simp Pt/Fam, Lab and Imaging orders and Staff clarify orders Special Needs: Heart tones Established Patient Charge Established Patient Point Assignment: 120 Established Patient Point Charge: EP Level 4 (120-155) Bedside Ultrasounds US Transabdominal <14 weeks at bedside: Yes Assessment & Plan Diagnosis / Problem List (1) Supervision of high risk , unspecified, first trimester: Status: Acute Plan Terri CADET, at 21 weeks 5 days gestation, presenting for initial obstetric visit with history of severe nausea and vomiting in early , now improved. Intrauterine Assessment: Patient is a 19-year-old at 21 weeks 5 days gestation based on last menstrual period of February 19, 2024, and confirmed by ultrasound measurements. The appears to be progressing normally with heart tones detected and appropriate growth. The patient reports a history of severe nausea and vomiting in early , which has now improved. She continues to experience occasional vomiting with spicy or seasoned foods and reports episodes of abdominal pain that have led to multiple emergency department visits. Plan: - Referral for high-resolution ultrasound at [facility] in [place] for formal dating and anatomical survey - Order comprehensive labs including: - Blood type and Rh factor - Complete blood count for anemia screening - Infectious disease screening - Genetic screening for Down syndrome and other chromosomal abnormalities - Prescribe vitamins - Provide work note stating and due date - Advise patient to request FMLA forms from employer for completion at next visit - Follow-up as scheduled or sooner if concerns arise Nausea and vomiting of Assessment: Patient reports a history of severe nausea and vomiting in early that has significantly improved. She currently experiences occasional vomiting, primarily triggered by spicy or seasoned foods. The patient also reports heartburn associated with these episodes. 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 The exact nature and cause of these pain episodes are not clear from the available information. Plan: - Review emergency department records if available - Assess for any warning signs or symptoms at follow-up visits - Educate patient on when to seek immediate medical attention - Consider additional evaluation if pain persists or worsens Educated the patient on the importance of care, including taking vitamins with folic acid, iron, and calcium. Emphasized avoiding alcohol, smoking, and certain medications. Discussed common symptoms like nausea and fatigue, advising small, frequent meals and adequate hydration. Explained the need for regular check-ups and recommended safe physical activities. Instructed on signs of complications, such as severe cramping or bleeding, and when to seek immediate medical attention. Highlighted the importance of a balanced diet and avoiding high-risk foods. Encouraged open communication about any concerns or questions. Encouraged keeping up with all appointments and tests
== END 2024-07-18 09:45 | disposition home or self-care (01) ==
PROVIDERS: PCP Internal Medicine Gastroenterology; Referring Provider Internal Medicine Gastroenterology; Supervising Provider Obstetrics & Gynecology; Visit Provider Obstetrics & Gynecology
DX: O09.892 Supervision of other high risk pregnancies, second trimester (principal); Z3A.21 21 weeks gestation of pregnancy; O21.2 Late vomiting of pregnancy; O99.891 Other specified diseases and conditions complicating pregnancy; R10.9 Unspecified abdominal pain
CPT/HCPCS: 76801; 99214; G0463

== ENCOUNTER 2024-08-17 09:41 | Outpatient (AMB) | payer MEDICAID, SELFPAY ==
[2024-08-17 09:54] VITALS: BP 131/75; PULSE 66; RESP 18; TEMP 36.2; O2SAT 97; BMI 48.4
--- NOTE | 2024-08-17 09:54 | OBCLNT_ITS ---
Vital Signs 08/17/24 09:54 Height 1.52 m Height Method Stated Weight 112.037 kg Weight Measurement Method Standing Scale BMI 48.4 BP 131/75 H Blood Pressure Source Automatic Cuff Blood Pressure Location Left Upper Arm Position Sitting Respiration 18 Pulse 66 Pulse Source Monitor Temp 97.2 F Temp Source Oral Pulse Oximetry (%) 97 Oxygen Delivery Method Room Air Allergies/Home Meds Allergies & Medications Allergies amoxicillin Allergy (Severe, Verified 08/17/24 09:55) Hives Medication Reconciliation Phenazopyridine * (PYRIDIUM *) 200 mg PO TIDPC #6 tabs 11/11/16 [Rx Confirmed 08/17/24] ibuprofen 600 mg tablet 600 mg PO Q8HR PRN PAIN #30 tabs 11/11/16 [Rx Confirmed 08/17/24] ibuprofen 800 mg tablet (IBU) 800 mg PO Q8H #20 tabs 04/02/23 [Rx Confirmed 08/17/24] vitamin with calcium no.72-iron 27 mg-folic acid 1 mg tablet ( Plus (calcium carbonate)) 1 tab PO QDAY 90 days #90 tabs 07/18/24 [Rx Confirmed 08/17/24] Intake Visit Data Collection New Patient or Established: Established Patient (seen at [facility] within 3 years) Reason for Visit:: OBC Seen by Clinical Staff ONLY (RN/MA): No 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 1. Little interest or pleasure in doing things: not at all 2. Feeling down, depressed, or hopeless: not at all Total score: 0 PHQ-9 3. Trouble falling or staying asleep, or sleeping too much: Not at all 4. Feeling tired or having little energy: Not at all 5. Poor appetite or overeating: Not at all 6. Feeling bad about yourself - or that you are a failure or have let yourself or your family down: Not at all 7. Trouble concentrating on things, such as reading the newspaper or watching television: Not at all 8. Moving or speaking so slowly that other people could have noticed? - Or the opposite - being so fidgety or restless that you have been moving around a lot more than usual: not at all 9. Thoughts that you would be better off or of hurting yourself in some way: Not at all Total score: 0 If you checked off any problems, how difficult have these problems made it for you to do your work, take care of things at home, or get along with other people?: not difficult at all Source: Developed by Drs. Nikhil Zimmer, Shazia Cancino, Kole Rojas and colleagues, with an educational wendie from [employer]. 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 Medical History Past Medical History: No Hx Neurological Disorders and No Hx Cardiac Disorders Care OB Visit Log OB Flowsheet Initial Weight: Not Recorded Date -?-?-?-?-?-?-?-?-?-?-?-?- EGA Weight BP Alb Glu CTX Pres Fundal ht FHR Mov Dilation Station Effacement Hx Notes Visit Note 07/18/24 -?-?-?-?-?-?-?-?-?-?-?-?- 21w 5d 109.429 kg 112/76 Estimated Due Date Summary LMP104/20/2024EDD by LMP11/25/2024 Ultrasound #104, 21w5d (bedside) PETER by US #108 Final EDD5Basis for Final EDDLM P PETER Calculator Estimated Delivery Date Method Current WG Current Estimate 11/23/24 Ultrasound #1 26w 1d Other Estimates 11/25/24 LMP (Uncertain) 25w 6d Office Procedures OB Clinic LOC & Office Proc's Nursing/Assessment Patient Status: Established Patient OB Clinic Nursing Assessment: Medication Reconciliation, Update PMH in EMR and Vital Signs OB Clinic Coordination of Care: Education Complex Pt/Fam, Consent,records obtained, informed consent, Results/Orders obtained and Staff clarify orders Special Needs: Heart tones Established Patient Charge Established Patient Point Assignment: 100 Established Patient Point Charge: EP Level 3 (80-115)
== END 2024-08-17 10:26 | disposition home or self-care (01) ==
LOC: HODSOBC 09:41
PROVIDERS: PCP Obstetrics & Gynecology; Referring Provider Obstetrics & Gynecology; Supervising Provider Obstetrics & Gynecology; Visit Provider Obstetrics & Gynecology
DX: O09.892 Supervision of other high risk pregnancies, second trimester (principal); O16.2 Unspecified maternal hypertension, second trimester; O99.612 Diseases of the digestive system complicating pregnancy, second trimester; K92.1 Melena; O99.891 Other specified diseases and conditions complicating pregnancy; R12 Heartburn; M54.50 Low back pain, unspecified; Z3A.25 25 weeks gestation of pregnancy
CPT/HCPCS: 99213; G0463

== ENCOUNTER 2024-09-15 11:37 | Outpatient (AMB) | payer MEDICAID, SELFPAY ==
[2024-09-15 11:45] VITALS: BP 104/69; PULSE 69; RESP 17; TEMP 36.5; O2SAT 96; BMI 49.5
--- NOTE | 2024-09-15 11:45 | AMB.OBVISIT ---
Vital Signs 09/15/24 11:45 Height 1.52 m Height Method Measured Weight 114.475 kg Weight Measurement Method Standing Scale BMI 49.5 BP 104/69 Blood Pressure Source Automatic Cuff Blood Pressure Location Right Upper Arm Position Sitting Respiration 17 Pulse 69 Pulse Source Monitor Temp 97.7 F Temp Source Temporal Artery Scan Pulse Oximetry (%) 96 Oxygen Delivery Method Room Air Allergies/Home Meds Allergies & Medications Allergies amoxicillin Allergy (Severe, Verified 09/15/24 11:47) Hives Intake Visit Data Collection New Patient or Established: Established Patient (seen at [facility] within 3 years) Reason for Visit:: OBC Transmission Design Engineer Required: No Do You Feel Safe at Home: Yes Authorities Contacted: N/A PCP or OBGYN visit in last 3 months: Yes Date of Last PCP or OBGYN visit: 08/17/24 Hx Now: Yes Are you currently on any form of Control: No Pain Present Currently: No Pain Scale Used: [place]/Numerical Pain scale:: 0 Smoking Status Smoking Status: Never smoker Questionnaires Covid-19 Vaccine Questionnaire Has patient been vacinated for Covid-19 Have you been vacinated for Covid-19: No PHQ-9 PHQ-2 Over the last 2 weeks, how often have you been bothered by any of the following problems? 1. Little interest or pleasure in doing things: not at all 2. Feeling down, depressed, or hopeless: not at all Total score: 0 PHQ-9 3. Trouble falling or staying asleep, or sleeping too much: Not at all 4. Feeling tired or having little energy: Not at all 5. Poor appetite or overeating: Not at all 6. Feeling bad about yourself - or that you are a failure or have let yourself or your family down: Not at all 7. Trouble concentrating on things, such as reading the newspaper or watching television: Not at all 8. Moving or speaking so slowly that other people could have noticed? - Or the opposite - being so fidgety or restless that you have been moving around a lot more than usual: not at all 9. Thoughts that you would be better off or of hurting yourself in some way: Not at all Total score: 0 If you checked off any problems, how difficult have these problems made it for you to do your work, take care of things at home, or get along with other people?: not difficult at all Source: Developed by Drs. Nikhil Zimmer, Shazia Cancino, Kole Rojas and colleagues, with an educational wendie from [employer]. 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 Sono shows cephalic presentation with normal anatomy, EFW approx. 2.5?3 lbs. Plan: GTT before next visit, f/u sono in [place] 10/02, f/u visit after 10/04 to review results. Offered intro to other providers. PETER Calculator Estimated Delivery Date Method Current WG Current Estimate 11/23/24 Ultrasound #1 35w 3d Other Estimates 11/25/24 LMP (Uncertain) 35w 1d Office Procedures OB Clinic LOC & Office Proc's Nursing/Assessment Patient Status: Established Patient OB Clinic Nursing Assessment: Medication Reconciliation, Update PMH in EMR and Vital Signs OB Clinic Coordination of Care: Complex Care and Chronic Disease 1-5, Education Complex Pt/Fam, Consent,records obtained, informed consent, Lab and Imaging orders and Staff clarify orders Special Needs: Heart tones Established Patient Charge Established Patient Point Assignment: 135 Established Patient Point Charge: EP Level 4 (120-155) Assessment & Plan Diagnosis / Problem List (1) Supervision of high risk , unspecified, second trimester: Status: Acute
== END 2024-09-15 11:56 | disposition home or self-care (01) ==
LOC: HODSOBC 11:37
PROVIDERS: PCP Obstetrics & Gynecology; Referring Provider Obstetrics & Gynecology; Supervising Provider Obstetrics & Gynecology; Visit Provider Obstetrics & Gynecology
DX: O09.93 Supervision of high risk pregnancy, unspecified, third trimester (principal); Z3A.30 30 weeks gestation of pregnancy; Z88.0 Allergy status to penicillin
CPT/HCPCS: 99214; G0463

== ENCOUNTER 2024-10-31 10:37 | Outpatient (AMB) | payer MEDICAID, SELFPAY ==
[2024-10-31 10:59] VITALS: BP 108/69; PULSE 71; RESP 17; TEMP 36.5; O2SAT 97; BMI 51.5
--- NOTE | 2024-10-31 10:59 | OBCLNT_ITS ---
Vital Signs 10/31/24 10:59 Height 1.52 m Height Method Measured Weight 119.011 kg Weight Measurement Method Standing Scale BMI 51.5 BP 108/69 Blood Pressure Source Automatic Cuff Blood Pressure Location Right Upper Arm Position Sitting Respiration 17 Pulse 71 Pulse Source Monitor Temp 97.7 F Temp Source Temporal Artery Scan Pulse Oximetry (%) 97 Oxygen Delivery Method Room Air Allergies/Home Meds Allergies & Medications Allergies amoxicillin Allergy (Severe, Verified 11/07/24 12:05) Hives Medication Reconciliation vitamins with calcium no.72-iron 27 mg-folic acid 1 mg tablet ( Plus (calcium carbonate)) 1 tab PO QDAY 90 days #90 tabs 07/18/24 [Rx Confirmed 11/07/24] Intake Visit Data Collection New Patient or Established: Established Patient (seen at [facility] within 3 years) Reason for Visit:: OBC Consent obtained for Telemed Visit: No Seen by Clinical Staff ONLY (RN/MA): No Senior Administrator Support Required: No Do You Feel Safe at Home: Yes Authorities Contacted: N/A PCP or OBGYN visit in last 3 months: Yes Date of Last PCP or OBGYN visit: 09/15/24 Are you currently on any form of Control: Yes Pain Present Currently: No Pain Scale Used: [place]/Numerical Pain scale:: 0 Smoking Status Smoking Status: Never smoker Questionnaires Covid-19 Vaccine Questionnaire Has patient been vacinated for Covid-19 Have you been vacinated for Covid-19: No PHQ-9 PHQ-2 Over the last 2 weeks, how often have you been bothered by any of the following problems? 1. Little interest or pleasure in doing things: not at all PHQ-9 8. Moving or speaking so slowly that other people could have noticed? - Or the opposite - being so fidgety or restless that you have been moving around a lot more than usual: not at all Source: Developed by Drs. Nikhil Zimmer, Shazia Cancino, Kole Rojas and colleagues, with an educational wendie from [employer]. 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 Past Medical History: No Hx Neurological Disorders and No Hx Cardiac Disorders Care OB Visit Log OB Flowsheet Initial Weight: Not Recorded Date -?-?-?-?-?-?-?-?-?-?-?-?- EGA Weight BP Alb Glu CTX Pres Fundal ht FHR Mov Dilation Station Effacement Hx Notes Visit Note 07/18/24 -?-?-?-?-?-?-?-?-?-?-?-?- 21w 5d 109.429 kg 112/76 Estimated Due Date Summary LMP104/20/2024EDD by LMP11/25/2024 Ultrasound #104, 21w5d (bedside) PETER by US #108 Final EDD5Basis for Final EDDLM P 09/15/24 -?-?-?-?-?-?-?-?-?-?-?-?- 30w 1d 114.475 kg 104/69 occasional unknown 31 145 at 30w1d with improved back pain, good FM, FHR 130. Sono shows cephalic presentation with normal anatomy, EFW approx. 2.5?3 lbs. Plan: GTT before next visit, f/u sono in [place] 10/02, f/u visit after 10/04 to review results. Offered intro to other providers. 10/31/24 -?-?-?-?-?-?-?-?-?-?-?-?- 36w 5d 119.011 kg 108/69 occasional unknown 35 145 No contractions, LOF, VB and reports good FM. Denies MOODY, VC, and epigastric pain. - Schedule primary on November 16 at 12:30 PM due to breech presentation, pending review of ultrasound report from [facility] - Patient to perform self-administered v aginal swab - Follow up on ultrasound report from [facility] PETER Calculator Estimated Delivery Date Method Current WG Current Estimate 11/23/24 Ultrasound #1 39w 0d Other Estimates 11/25/24 LMP (Uncertain) 38w 5d Office Procedures OB Clinic LOC & Office Proc's Nursing/Assessment Patient Status: Established Patient OB Clinic Nursing Assessment: Medication Reconciliation, Update PMH in EMR and Vital Signs OB Clinic Coordination of Care: Complex Care and Chronic Disease 1-5, Consent,records obtained, informed consent, Education Simp Pt/Fam and 4+ Authorizations needed Special Needs: Heart tones Established Patient Charge Established Patient Point Assignment: 130 Established Patient Point Charge: EP Level 4 (120-155) Assessment & Plan Diagnosis / Problem List (1) Uterine size-date discrepancy in third trimester: Status: Acute (2) Supervision of high risk , unspecified, third trimester: Status: Acute
== END 2024-10-31 11:30 | disposition home or self-care (01) ==
LOC: HODSOBC 10:37
PROVIDERS: PCP Obstetrics & Gynecology; Referring Provider Obstetrics & Gynecology; Supervising Provider Obstetrics & Gynecology; Visit Provider Obstetrics & Gynecology
DX: O09.893 Supervision of other high risk pregnancies, third trimester (principal); O26.843 Uterine size-date discrepancy, third trimester; O32.1XX0 Maternal care for breech presentation, not applicable or unspecified; Z3A.36 36 weeks gestation of pregnancy; Z88.0 Allergy status to penicillin
CPT/HCPCS: 99214; G0463

== ENCOUNTER 2024-11-07 10:26 | Outpatient (AMB) | payer MEDICAID, SELFPAY ==
[2024-11-07 10:38] VITALS: BP 116/75; PULSE 84; RESP 17; TEMP 36.7; O2SAT 95; BMI 51.9
--- NOTE | 2024-11-07 10:38 | OBCLNT_ITS ---
Vital Signs 11/07/24 10:38 Height 1.52 m Height Method Measured Weight 119.918 kg Weight Measurement Method Standing Scale BMI 51.9 BP 116/75 Blood Pressure Source Automatic Cuff Blood Pressure Location Right Upper Arm Position Sitting Respiration 17 Pulse 84 Pulse Source Monitor Temp 98.1 F Temp Source Temporal Artery Scan Pulse Oximetry (%) 95 Oxygen Delivery Method Room Air Allergies/Home Meds Allergies & Medications Allergies amoxicillin Allergy (Severe, Verified 11/07/24 12:05) Hives Medication Reconciliation vitamins with calcium no.72-iron 27 mg-folic acid 1 mg tablet ( Plus (calcium carbonate)) 1 tab PO QDAY 90 days #90 tabs 07/18/24 [Rx Confirmed 11/07/24] Intake Visit Data Collection New Patient or Established: Established Patient (seen at [facility] within 3 years) Reason for Visit:: OBC Consent obtained for Telemed Visit: No Seen by Clinical Staff ONLY (RN/MA): No 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 1. Little interest or pleasure in doing things: not at all PHQ-9 8. Moving or speaking so slowly that other people could have noticed? - Or the opposite - being so fidgety or restless that you have been moving around a lot more than usual: not at all Source: Developed by Drs. Nikhil Zimmer, Shazia Cancino, Kole Rojas and colleagues, with an educational wendie from [employer]. 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 Past Medical History: No Hx Neurological Disorders and No Hx Cardiac Disorders Care OB Visit Log OB Flowsheet Initial Weight: Not Recorded Date -?-?-?-?-?-?-?-?-?-?-?-?- EGA Weight BP Alb Glu CTX Pres Fundal ht FHR Mov Dilation Station Effacement Hx Notes Visit Note 07/18/24 -?-?-?-?-?-?-?-?-?-?-?-?- 21w 5d 109.429 kg 112/76 Estimated Due Date Summary LMP104/20/2024EDD by LMP11/25/2024 Ultrasound #104, 21w5d (bedside) PETER by US #108 Final EDD11/25/2024asis for Final EDDLM P 09/15/24 -?-?-?-?-?-?-?-?-?-?-?-?- 30w 1d 114.475 kg 104/69 occasional unknown 31 145 at 30w1d with improved back pain, good FM, FHR 130. Sono shows cephalic presentation with normal anatomy, EFW approx. 2.5?3 lbs. Plan: GTT before next visit, f/u sono in [place] 10/02, f/u visit after 10/04 to review results. Offered intro to other providers. 10/31/24 -?-?-?-?-?-?-?-?-?-?-?-?- 36w 5d 119.011 kg 108/69 occasional unknown 35 145 No contractions, LOF, VB and reports good FM. Denies MOODY, VC, and epigastric pain. - Schedule primary on November 16 at 12:30 PM due to breech presentation, pending review of ultrasound report from [facility] - Patient to perform self-administered v aginal swab - Follow up on ultrasound report from [facility] 11/07/24 -?-?-?-?-?-?-?-?-?-?-?-?- 37w 5d 119.918 kg 116/75 occasional breech 38 145 Patient reports contractions and back pain. Reports good FM. Denies MOODY, VC, and epigastric pain. Problem List - Breech presentation - , 37 weeks and 5 days - Low back pain Plan - Patient to proceed to 4th floor of [facility] for monitoring and evaluation - Nurses to be notified of patient's arr ival - Patient to be monitored and rechecked after 2 hours to assess for labor progression - If labor is progressing, patient may d eliver today - If not delivering today, scheduled C-s ection on November 16 at 12:30 PM (patient to arrive at 10:00 AM) - No food, drink, or medications after m idnight the night before PETER Calculator Estimated Delivery Date Method Current WG Current Estimate 11/23/24 Ultrasound #1 39w 0d Other Estimates 11/25/24 LMP (Uncertain) 38w 5d Office Procedures OB Clinic LOC & Office Proc's Nursing/Assessment Patient Status: Established Patient OB Clinic Nursing Assessment: Medication Reconciliation, Update PMH in EMR and Vital Signs OB Clinic Coordination of Care: Complex Care and Chronic Disease 1-5, Education Complex Pt/Fam, Consent,records obtained, informed consent, 4+ Authorizations needed and Results/Orders obtained Special Needs: Heart tones Established Patient Charge Established Patient Point Assignment: 140 Established Patient Point Charge: EP Level 4 (120-155) Assessment & Plan Diagnosis / Problem List (1) UTI in : Status: Acute (2) Supervision of high risk , unspecified, third trimester: Status: Acute
== END 2024-11-07 11:04 | disposition home or self-care (01) ==
LOC: HODSOBC 10:26
PROVIDERS: Supervising Provider Obstetrics & Gynecology; Visit Provider Obstetrics & Gynecology
DX: O09.893 Supervision of other high risk pregnancies, third trimester (principal); O23.43 Unspecified infection of urinary tract in pregnancy, third trimester; O32.1XX0 Maternal care for breech presentation, not applicable or unspecified; Z3A.37 37 weeks gestation of pregnancy; Z88.0 Allergy status to penicillin
CPT/HCPCS: 99214; G0463

== ENCOUNTER 2024-11-07 11:29 | Observation (INO) | payer MEDICAID, SELFPAY ==
[2024-11-07] VITALS (27 sets, daily range): BP systolic 117; BP diastolic 66; PULSE 73–98; RESP 20–98; TEMP 37.1; O2SAT 91–99; BMI 51.5
[2024-11-07] MEDS: RINGERS LACTATED 1000 ML 1,000 ML 999 ML IV (11:35)
--- NOTE | 2024-11-07 11:43 | XR_ITS ---
Examination: age Limited TECHNIQUE: Limited transabdominal sonographic images pelvis INDICATIONS: Pelvic pressure today FINDINGS: Viable intrauterine gestation breech presentation spine maternal right Cervix 3.4 cm closed Cardiac motion 132 BPM IMPRESSION: Viable intrauterine gestation breech presentation
[2024-11-07] MEDS: RINGERS LACTATED 1000 ML 1,000 ML 100 ML IV (12:14)
== END 2024-11-07 13:45 | disposition home or self-care (01) ==
PROVIDERS: Admitting Provider Obstetrics & Gynecology; Visit Provider Obstetrics & Gynecology
DX: O47.1 False labor at or after 37 completed weeks of gestation (principal); Z3A.37 37 weeks gestation of pregnancy; O32.1XX0 Maternal care for breech presentation, not applicable or unspecified
CPT/HCPCS: 59025; 59899; 76815; J7120

== ENCOUNTER 2024-11-16 10:17 | Inpatient (IN) | payer MEDICAID, SELFPAY ==
[2024-11-16] VITALS (12 sets, daily range): BP systolic 102–144; BP diastolic 58–104; PULSE 77–99; RESP 12–24; TEMP 36.4–36.9; O2SAT 96–99; BMI 40.6
--- NOTE | 2024-11-16 10:22 | XR_ITS ---
Examination: age Limited TECHNIQUE: Limited transabdominal sonographic images pelvis Date and time: November 16, 2024 1027 hours INDICATIONS: Breech presentation on ultrasound November 07, 2024 FINDINGS: Viable intrauterine gestation breech presentation spine maternal right. Cervix 3.6 cm closed Cardiac motion 1:30 BPM IMPRESSION: Viable intrauterine gestation breech presentation
[2024-11-16] MEDS: RINGERS LACTATED 1000 ML 1,000 ML 100 ML IV ×2 (11:20→12:46)
--- NOTE | 2024-11-16 11:25 | ESHP_ITS ---
Documentation for date of: 11/16/24 OB Labor/Induct. HPI History of Present Illness Chief complaint: for breech : 1 Term pregnancies: 0 pregnancies: 0 Living children: 0 History of Abortions: Spontaneous and Elective: 0 History of sections: No History of : No History of present illness: Terri Rosario is a 37-year-old at 39 weeks gestation who presents for scheduled section due to persistent breech presentation confirmed by ultrasound earlier today. The patient was last seen at 37w5d for routine care and reported mild contractions and constant back pain as well as difficulty moving due to discomfort. She denies LOF, headache, visual changes, or epigastric pain. movements remained reassuring. The patient is otherwise stable and scheduled for delivery at 12:30 PM. Review of Systems Review of Systems Systems Reviewed: All systems reviewed, normal except as documented Past Medical History Surgical History SURGICAL: Negative Section Meds Home Medications and Allergies Allergies Allergy/AdvReac Type Severity Reaction Status Date / Time amoxicillin Allergy Severe Hives Verified 11/07/24 12:05 OB Exam Physical Exam Vital signs: Pulse BP 77 121/58 L 11/16/24 11:01 11/16/24 11:01 Constitutional Constitutional: no acute distress Routine HEENT Exam Head: Present normocephalic and atraumatic Eye: Present EOMI and PERRL ENT: Present mucous membranes moist Routine Neck Exam Neck: Present supple and trachea midline Routine Cardiovascular Exam Cardiovascular: Present RRR Routine Abdominal Exam Abdominal: Present soft and normoactive bowel sounds Detailed Labor and Delivery Exam Dilation (cm): 0 Baseline heart rate: 145 monitor accelerations: 15x15 monitor decelerations: None Routine Extremities Exam Extremities: Present full ROM Routine Skin Exam Skin: Present intact, dry and warm Routine Neurological Exam Neurological: Present alert, oriented X3 and CN II-XII intact Routine Psychiatric Exam Psychiatric: Present normal affect and normal thought process OB Assessment & Plan Assessment and Plan (1) Supervision of high risk , unspecified, third trimester: Status: Acute (2) Breech presentation of fetus: Status: Acute Assessment and plan: Assessment: 39w0d with breech presentation, scheduled for primary low-transverse section today. No signs of labor currently requiring emergent delivery, but patient was uncomfortable with mild contractions at previous visit. status reassuring. Labs within normal limits. Plan: * Proceed with scheduled at 12:30 PM today * NPO since midnight * Routine pre-operative checklist * Continue to monitor heart rate until transfer to OR * Notify anesthesia and nursing team * team on standby * Plan for routine recovery
[2024-11-16 11:45] LABS: Basophils # (Auto) 0.0 Thou/mm3 (0.0-0.2); Basophils % (Auto) 0 % (0-2.5); Eosinophils # (Auto) 0.0 Thou/mm3 (0.0-0.5); Eosinophils % (Auto) 0 % (0-10); Hematocrit 30.7 % (36.0-46.0); Hemoglobin 10.4 g/dL (12.0-16.0); Immature Granulocytes Auto 0.07 Thou/mm3 (0.00-0.00); Lymphocytes # (Auto) 2.8 Thou/mm3 (1.0-4.8); Lymphocytes % (Auto) 24 % (10-50); Mean Corpuscular HGB Conc 33.9 g/dl (31.0-37.0); Mean Corpuscular Hemoglobin 28.6 pg (25.0-35.0); Mean Corpuscular Volume 84 fL (80-100); Monocytes # (Auto) 0.5 Thou/mm3 (0.0-0.8); Monocytes % (Auto) 4 % (0-12); Neutrophils # (Auto) 8.3 Thou/mm3 (1.8-7.7); Neutrophils % (Auto) 71 % (37-80); Nucleated Red Blood Cell # 0.00 Thou/mm3 (0.00-0.00); Nucleated Red Blood Cell % 0 /100 WBC (0); Platelet Count 295 Thou/mm3 (140-440); RDW Standard Deviation 43.4 fL (36.4-46.3); Red Blood Count 3.64 Miln/mm3 (4.00-5.20); White Blood Count 11.7 Thou/mm3 (3.6-11.0)
[2024-11-16 12:21] LABS: Syphilis Nonreactive (Nonreactive)
--- NOTE | 2024-11-16 12:38 | PD.GYNPROC ---
Operative Note - DOCTOR OF NATUROPATHIC MEDICINE Procedure Date of procedure: 11/16/24 Procedure Performed: Primary low-transverse section Indication: 24-year-old 1 para 0 at 39 weeks with breech presentation Anesthesia type: Spinal Procedure description: Informed consent was obtained. The patient was brought to the operating room and identified with two patient identifiers. She was placed in the supine position, and spinal anesthesia was administered. After confirming adequate anesthesia, the abdomen and perineum were prepped and draped in the usual sterile fashion. A Lemus catheter was inserted for continuous bladder drainage. A low transverse (Pfannenstiel) skin incision was made using a scalpel and carried through subcutaneous tissue to the rectus fascia. The previous scar was identified and excised in its entirety. The fascia was incised transversely and dissected off the rectus muscles both superiorly and inferiorly. The rectus bellies were in the midline, and the peritoneum was entered bluntly with the surgeon?s finger. The peritoneal opening was extended to allow adequate exposure. An Dixon O-ring retractor was placed for optimal visualization. The lower uterine segment was palpated, and the bladder flap was reflected inferiorly. A low transverse uterine incision (Ed Araya) was made with a scalpel and extended bluntly. The amniotic membranes were ruptured, and clear fluid was released. The fetus was noted to be in breech presentation. The was delivered by breech extraction without difficulty. The shoulders and head were delivered smoothly with gentle traction. The umbilical cord was doubly clamped and cut, and the was handed to the awaiting team. Cord gases were obtained. The placenta was delivered with gentle traction on the cord. The uterine cavity was cleared of membranes and clots. The hysterotomy angles were secured with Allis clamps. Persistent bleeding was noted from the left uterine artery. Hemostasis was achieved with placement of compression sutures using 0 Vicryl. The uterine incision was closed in two layers using #1 Monocryl: the first layer was a running locked suture to approximate the myometrium, and the second layer imbricated the serosa and myometrium. Hemostasis was confirmed. The Dixon retractor was removed. Peritoneal edges and rectus muscles were reapproximated. Rectus fascia was closed with running 0 Vicryl. The subcutaneous tissue was irrigated with warm saline, and bleeding points were cauterized using Bovie electrocautery. Subcutaneous tissue was approximated with 3-0 Vicryl. The skin was closed using 4-0 MOnocryl in a subcuticular fashion. A sterile dressing was applied. The patient was cleaned, undraped, and transferred to the recovery room in stable and awake condition. She tolerated the procedure well. All counts were correct ?2. Specimen: none Estimated blood loss (ml): 600 Complications: none Surgical staff Operation Date: 11/16/24 12:45 <No data on this case meets the specified criteria> Diagnosis Discharge Diagnosis (1) Breech presentation of fetus: Status: Acute Problem List Completed Was Problem List Reviewed/Reconciled?: Yes
[2024-11-16] MEDS: FAMOTIDINE INJ 10 MG/ML VIAL 2 ML 20 MG IV (12:47)
[2024-11-16] MEDS: CITRIC ACID/SODIUM CITR 15 ML UDC (BICITRA) 30 ML PO (12:47)
[2024-11-16 13:00] LABS: Amphetamine/Metham Scrn,Ur OB Negative (Negative); Benzoylecgonine Screen, Ur OB Negative (Negative); Opiate Screen,Urine OB Negative (Negative); THC Screen,Urine OB Negative (Negative)
[2024-11-16] MEDS: CLINDAMYCIN 900MG IVPB 900 MG in PRE-MIXED 1 BAG 50 MG IV (13:20)
--- NOTE | 2024-11-16 13:40 | PD.LDDELS ---
Data ([place]) Data Hx Section: No : 1 Term: 0 : 0 Livin Abortions: Spontaneous & Theraputic: 0 Delivery Data (Avery) Delivery Data Delivered by: Anesthesia Type Anesthesia type: Spinal
[2024-11-16] MEDS: OXYTOCIN in NS 20 units 20 UNIT/1,000 ML BAG 125 UNIT IV (17:21)
[2024-11-17] VITALS: BP 117/74; PULSE 96; RESP 16; TEMP 36.4; O2SAT 95
[2024-11-17] MEDS: KETOROLAC INJ 30 MG/ML VIAL IVP (01:27)
[2024-11-17] MEDS: OXYTOCIN in NS 20 units 20 UNIT/1,000 ML BAG 125 UNIT IV (01:28)
[2024-11-17] MEDS: SIMETHICONE 80 MG CHEW PO (01:29)
[2024-11-17 05:00] VITALS: BP 101/64; PULSE 76; RESP 18; TEMP 36.4; O2SAT 97
[2024-11-17 06:56] LABS: Basophils # (Auto) 0.0 Thou/mm3 (0.0-0.2); Basophils % (Auto) 0 % (0-2.5); Eosinophils # (Auto) 0.0 Thou/mm3 (0.0-0.5); Eosinophils % (Auto) 0 % (0-10); Hematocrit 26.3 % (36.0-46.0); Immature Granulocytes Auto 0.13 Thou/mm3 (0.00-0.00); Lymphocytes # (Auto) 2.8 Thou/mm3 (1.0-4.8); Lymphocytes % (Auto) 17 % (10-50); Mean Corpuscular HGB Conc 33.5 g/dl (31.0-37.0); Mean Corpuscular Hemoglobin 28.4 pg (25.0-35.0); Mean Corpuscular Volume 85 fL (80-100); Monocytes # (Auto) 1.3 Thou/mm3 (0.0-0.8); Monocytes % (Auto) 8 % (0-12); Neutrophils # (Auto) 12.7 Thou/mm3 (1.8-7.7); Neutrophils % (Auto) 75 % (37-80); Nucleated Red Blood Cell # 0.00 Thou/mm3 (0.00-0.00); Nucleated Red Blood Cell % 0 /100 WBC (0); Platelet Count 266 Thou/mm3 (140-440); RDW Standard Deviation 44.0 fL (36.4-46.3); Red Blood Count 3.10 Miln/mm3 (4.00-5.20); White Blood Count 16.9 Thou/mm3 (3.6-11.0)
[2024-11-17 07:18] LABS: Hemoglobin 8.8 g/dL (12.0-16.0)
[2024-11-17 09:00] VITALS: BP 105/66; PULSE 81; RESP 19; TEMP 36.7; O2SAT 97
[2024-11-17] MEDS: HYDROcodone/APAP 5/325 TABLET 2 TAB PO ×2 (09:13→20:13)
[2024-11-17] MEDS: DOCUSATE SOD 100 MG CAPSULE PO (09:14)
[2024-11-17] MEDS: DIPHTH,PERTUSS(ACELL),TET VAC 0.5 ML SYR- ADULT IMi (09:15)
[2024-11-17 13:00] VITALS: BP 107/62; PULSE 80; RESP 18; TEMP 36.5; O2SAT 97
[2024-11-17] MEDS: IBUPROFEN TAB 400 MG TABLET 800 MG PO (16:05)
[2024-11-17 17:00] VITALS: BP 119/67; PULSE 95; RESP 18; TEMP 36.8; O2SAT 97
[2024-11-17 19:55] VITALS: BP 125/69; PULSE 80; RESP 16; TEMP 36.7; O2SAT 97
[2024-11-18 03:30] VITALS: BP 119/78; PULSE 74; RESP 16; TEMP 36.8; O2SAT 99
[2024-11-18] MEDS: HYDROcodone/APAP 5/325 TABLET 2 TAB PO ×2 (03:47→14:00)
[2024-11-18 05:48] LABS: Basophils # (Auto) 0.0 Thou/mm3 (0.0-0.2); Basophils % (Auto) 0 % (0-2.5); Eosinophils # (Auto) 0.1 Thou/mm3 (0.0-0.5); Eosinophils % (Auto) 1 % (0-10); Hematocrit 30.4 % (36.0-46.0); Hemoglobin 9.7 g/dL (12.0-16.0); Immature Granulocytes Auto 0.17 Thou/mm3 (0.00-0.00); Lymphocytes # (Auto) 4.5 Thou/mm3 (1.0-4.8); Lymphocytes % (Auto) 33 % (10-50); Mean Corpuscular HGB Conc 31.9 g/dl (31.0-37.0); Mean Corpuscular Hemoglobin 27.6 pg (25.0-35.0); Mean Corpuscular Volume 87 fL (80-100); Monocytes # (Auto) 0.9 Thou/mm3 (0.0-0.8); Monocytes % (Auto) 6 % (0-12); Neutrophils # (Auto) 7.9 Thou/mm3 (1.8-7.7); Neutrophils % (Auto) 58 % (37-80); Nucleated Red Blood Cell # 0.00 Thou/mm3 (0.00-0.00); Nucleated Red Blood Cell % 0 /100 WBC (0); Platelet Count 311 Thou/mm3 (140-440); RDW Standard Deviation 44.9 fL (36.4-46.3); Red Blood Count 3.51 Miln/mm3 (4.00-5.20); White Blood Count 13.5 Thou/mm3 (3.6-11.0)
[2024-11-18] MEDS: DOCUSATE SOD 100 MG CAPSULE PO (08:14)
[2024-11-18] MEDS: IBUPROFEN TAB 400 MG TABLET 800 MG PO (08:14)
[2024-11-18 08:25] VITALS: BP 112/77; PULSE 71; RESP 16; TEMP 36.8; O2SAT 98
--- NOTE | 2024-11-18 09:31 | ESPR_ITS ---
Subjective Subjective Interval history: The patient is a 24-year-old G1 now P1001 status post primary for breech performed 11/16/2024 around 12:30 in the afternoon by Dr. George. Patient is doing well today. She is tolerating a general diet and ambulating. She is working on breast-feeding but having to supplement quite a bit. Her BMI is 40 and she will have to go home on Lovenox. I did explain this process to the patient. She will follow-up with Dr. George in 1 week. She is denying fevers, chills, or heavy vaginal bleeding. She is voiding and tolerating a general diet and is passing flatus. Exam Vital Signs Temp Pulse Resp BP Pulse Ox O2 Del Method 98.2 F 71 16 112/77 98 Room Air 11/18/24 08:25 11/18/24 08:25 11/18/24 08:25 11/18/24 08:25 11/18/24 08:25 11/18/24 08:25 Narrative Exam Patient is alert and oriented x 3 no apparent distress resting comfortably in bed. Abdomen is soft fundus is firm incisions clean dry and intact. Extremities show no significant edema or erythema. Objective Labs 11/18/24 05:18 Labs: Laboratory Results - last 24 hr 11/18/24 05:18 WBC 13.5 H RBC 3.51 L Hgb 9.7 L Hct 30.4 L MCV 87 MCH 27.6 MCHC 31.9 RDW Std Deviation 44.9 Plt Count 311 D Neut % (Auto) 58 Lymph % (Auto) 33 [place] % (Auto) 6 Eos % (Auto) 1 Baso % (Auto) 0 Neut # (Auto) 7.9 H Lymph # (Auto) 4.5 [place] # (Auto) 0.9 H Eos # (Auto) 0.1 Baso # (Auto) 0.0 Immature Gran # (Auto) 0.17 H Absolute Nucleated RBC 0.00 Immature Gran % 1 H Nucleated RBC % 0 Assessment & Plan Problem List (1) Breech presentation of fetus: Problem details: Status post primary low-transverse section. Status: Acute (2) care following delivery: Problem details: Patient will be discharged home day #2 in stable condition. Discharge instructions given. Follow-up with Dr. George in 1 week. Status: Acute Time Spent With Patient Time: Total time spent is greater than 50% in coordination of care (as documented) at patient's floor/unit and/or counseling patient: Time with patient: less than 15 minutes
--- NOTE | 2024-11-18 09:36 | ESDS_ITS ---
DS: Providers Provider Date of admission: 11/16/24 10:17 Primary care physician: Physician No Primary/Family Admitting Provider: Gibson George MD Attending Provider on Admission: Gibson George MD Consults: 11/16/24 16:46 Referral Routine Comment: Attending Provider on DC: Esha Levin MD ([facility]) Discharging Provider: Esha Levin MD ([facility]) Anticipated date of discharge: 11/18/24 DS: Diagnosis Discharge Diagnosis (1) care following delivery: Status: Acute (2) Breech presentation of fetus: Status: Acute (3) Morbid obesity with BMI of 40.0-44.9, adult: Status: Acute Assessment & Plan: Home on Lovenox 40 mg SQ daily to prevent DVT x 6 to 8 weeks postop Problem List Completed Was Problem List Reviewed/Reconciled?: Yes Summary/Hosp Course Brief History: Terri Rosario is a 37-year-old at 39 weeks gestation who presents for scheduled section due to persistent breech presentation confirmed by ultrasound earlier today. The patient was last seen at 37w5d for routine care and reported mild contractions and constant back pain as well as difficulty moving due to discomfort. She denies LOF, headache, visual changes, or epigastric pain. movements remained reassuring. The patient is otherwise stable and scheduled for delivery at 12:30 PM. The patient was admitted by Dr. George 11/16/2024. Please see history and physical for further details. Patient underwent an uncomplicated primary low-transverse section 11/16/2024 about noon. Please see op report for further details. On postoperative day #1 patient was voiding. Tolerating a general diet. She was working on pain control. Predelivery hemoglobin 10.4 postdelivery hemoglobin 8.8. Postoperative day #2 patient's pain was under better control she was ambulating passing flatus voiding her pain was controlled with oral pain medications she was tolerating a general diet. A hemoglobin on postop day 2 came back at 9.7. Patient was discharged home postoperative day #2 in stable condition. Peripartum Data Delivery Method: Low Transverse Procedures: Procedures Operation Date: 11/16/24 12:45 Actual Procedure Side Surgeon p in OB Not Applicable Gibson George MD complications: none Status at Discharge Cognitive/behavioral status at discharge: Patient is alert and oriented x 3 in no apparent distress. Functional status at discharge: independent ambulation Overall status at discharge: patient is progressing back to baseline Time Spent with Patient Time attestation: Total time spent providing and/or coordinating discharge services: Time spent: Less than 30 minutes Specific discharge activities: Pelvic rest x 6 weeks. No heavy lifting intercourse tampons or douching's x 6 weeks. No heavy exercise x 6 weeks. Exam Vital Signs Temp Pulse Resp BP Pulse Ox O2 Del Method 98.2 F 71 16 112/77 98 Room Air 11/18/24 08:25 11/18/24 08:25 11/18/24 08:25 11/18/24 08:25 11/18/24 08:25 11/18/24 08:25 Narrative Exam Fundus is firm nontender incision clean dry and intact extremities show no significant edema or erythema. Discharge Plan Plan Patient Disposition: HOME (Self Care) Disposition Comment: Stable Patient condition on transfer: Stable Prescriptions/Referrals Prescriptions/Med Rec: New hydrocodone-acetaminophen 5-325 mg tablet 1 tab PO Q6H MDD 4 PRN (Reason: pain) 5 Days Qty: 20 0RF docusate sodium [Stool Softener] 100 mg capsule 100 mg PO QDAY 30 Days Qty: 30 0RF ibuprofen 600 mg tablet 600 mg PO Q6H MDD 4 PRN (Reason: fever or pain) 10 Days Qty: 40 0RF enoxaparin [Lovenox] 40 mg/0.4 mL syringe 40 mg subcut Q24H Qty: 4 4RF Continued Plus (calcium carb) 27 mg iron- 1 mg tablet 1 tab PO QDAY 90 Days Qty: 90 4RF Rx Instructions: give with food (meal/snack) Referrals: Gibson George MD [Physician] - No Primary/Family,Physician [Primary Care Provider] - Patient/Caregiver Discharge Instructions Discharge Activity: activity as tolerated Other Discharge Activity Instructions:: Pelvic rest x 6 weeks no heavy lifting intercourse douching tampons bathtubs x 6 weeks. No heavy exercise x 6 weeks. Okay to ambulate. Follow-up in [address] Srivastava for wound check and blood pressure check. Other Discharge Diet Instructions: General Diet as tolerated Education Materials: After Delivery [place] Concerns, After a , Nutrition While , Weight Management: Getting Started, Weight Management: Healthy Eating, C Section Dc Print Language: [place] African Activity Restrictions/Additional Instructions: Call for heavy vaginal bleeding, fevers or severe depression. Stand Alone Forms: Debbie Award Info., Patient Portal Info Letter Discharge Order Discharge Orders: Discharge (Routine); Ordered 11/18/24 Ordered By: Esha Levin ([facility]) Planned Discharge Date 11/18/24
--- NOTE | 2024-11-18 13:51 | PC.NURSE ---
according to SW, patient has necessary resources for safe discharge.
--- NOTE | 2024-11-18 14:17 | PC.CC ---
Terri Rosario is a 24-year-old female admitted for labor and delivery care. Director Traffic And Planning made contact with Pt at bedside to complete ob assessment and discuss discharge disposition. Role and reason for the contact was explained to Pt. Demographic information was verified. Pt identified Mother Maribell Burnham [phone] [facility] [id number] as surrogate decision maker. Pt is independent with all ADLs, no source of DME. PCP is l. At time of discharge patient will return home, family will provide transportation. Mother plans on breast feeing, has car seat, and all supplies for baby. Mother reported no hx of past substance, no DV, no CPS. Mother reports support system provided by extended family and FOB. Discharge Plan: Home Next of Kin: Mother Maribell Burnham [phone] PCP: [facility]
== END 2024-11-18 15:05 | disposition home or self-care (01) | DRG 540 ==
LOC: S4SX 10:23 → S4NX 12:57
PROVIDERS: Obstetrics & Gynecology; Admitting Provider Obstetrics & Gynecology; Visit Provider Obstetrics & Gynecology
PROC: 10D00Z1 Extraction of Products of Conception, Low, Open Approach (ICD-10-PCS; CPT 59514; principal; 2024-11-16 12:30)
DX: O32.1XX0 Maternal care for breech presentation, not applicable or unspecified (principal); Z3A.39 39 weeks gestation of pregnancy; Z37.0 Single live birth; E66.01 Morbid (severe) obesity due to excess calories; O99.214 Obesity complicating childbirth; Z88.0 Allergy status to penicillin
CPT/HCPCS: 36415; 59409; 76815; 80307; 85025; 86780; 86850; 86900; 86901; 90715; 94762; A4314; A4649; J1100; J1885; J2210; J2274; J2371; J2405; J2590; J3010; J3490; J7120; S0077; A9270; J0736; J2270

== ENCOUNTER 2024-12-12 10:11 | Outpatient (AMB) | payer MEDICAID, SELFPAY ==
[2024-12-12 10:23] VITALS: BP 132/78; PULSE 70; RESP 16; TEMP 36.8; O2SAT 98; BMI 47.3
--- NOTE | 2024-12-12 10:26 | AMB.OBPP ---
Vital Signs 12/12/24 10:23 12/12/24 10:27 Height 1.52 m Height Method Stated Weight 109.372 kg Weight Measurement Method Standing Scale BMI 47.3 BP 132/78 H 132/78 H Blood Pressure Source Automatic Cuff Blood Pressure Location Left Upper Arm Position Sitting Respiration 16 16 Pulse 70 70 Pulse Source Monitor Temp 98.2 F 98.2 F Temp Source Oral Pulse Oximetry (%) 98 98 Oxygen Delivery Method Room Air Allergies/Home Meds Allergies & Medications Allergies amoxicillin Allergy (Severe, Verified 12/12/24 10:26) Hives Medication Reconciliation vitamins with calcium no.72-iron 27 mg-folic acid 1 mg tablet ( Plus (calcium carbonate)) 1 tab PO QDAY 90 days #90 tabs 07/18/24 [Rx Confirmed 12/12/24] enoxaparin 40 mg/0.4 mL subcutaneous syringe (Lovenox) 40 mg (0.4 mL) subcut Q24H #4 mL 11/18/24 [Rx Confirmed 12/12/24] Intake Visit Data Collection New Patient or Established: Established Patient (seen at [facility] within 3 years) Reason for Visit:: OBC Seen by Clinical Staff ONLY (RN/MA): No Fire Management Specialist Required: No Do You Feel Safe at Home: Yes Authorities Contacted: N/A PCP or OBGYN visit in last 3 months: Yes Date of Last PCP or OBGYN visit: 11/18/24 Hx Now: No Are you currently on any form of Control: No Pain Present Currently: No Pain Scale Used: [place]/Numerical Pain scale:: 0 Smoking Status 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 Past Medical History: No Hx Neurological Disorders, No Hx Cardiac Disorders, No Hx Cancer, No Hx Blood Disorders, No Hx Anemia, No Hx Gastrointestinal Disorders, No Hx Renal Disease, No Hx Diabetes Mellitus Type 1 and No Hx Diabetes Mellitus Type 2 Questionnaires Covid-19 Vaccine Questionnaire Has patient been vacinated for Covid-19 Have you been vacinated for Covid-19: No Social History Living Situation History Lives With: Family Housing: House Tobacco History Smoking Status: Never smoker Second Hand Smoke Exposure: No Alcohol History Alcohol Intake: Never Domestic Abuse History Do You Feel Safe at Home: Yes EPDS - PP Depression Screening [place] Pospartum Depression Screen I have been able to laugh and see the funny side of things: (0) As much as I always could I have looked forward with enjoyment to things: (0) As much as I ever did I have blamed myself unnecessarily when things went wrong: (0) No, never I have been anxious or worried for no good reason: (0) No, not at all I have felt scared or panicky for no very good reason: (0) No, not at all Things have been getting on top of me: (0) No, I have been coping as well as ever I have been so unhappy that I have had difficulty sleeping: (0) No, not at all I have felt sad or miserable: (0) No, not at all I have been so unhappy that I have been crying: (0) No, never The thought of harming myself has occurred to me: (0) Never Total Score: EPDS Score: Referral is indicated for score of 9 or more, suicidal, or if provider believes patient is depressed regardless of score.: 0 EPDS completed yes Care OB Visit Log OB Flowsheet Initial Weight: Not Recorded Date <del>?</del> EGA Weight BP Alb Glu CTX Pres Fundal ht FHR Mov Dilation Station Effacement Hx Notes Visit Note 07/18/24 <del>?</del> 21w 5d 109.429 kg 112/76 Estimated Due Date Summary LMP104/20/2024EDD by LMP11/25/2024 Ultrasound #104, 21w5d (bedside)PETER by US #108 Final EDD5Basis for Final EDDLMP 09/15/24 <del>?</del> 30w 1d 114.475 kg 104/69 occasional unknown 31 145 at 30w1d with improved back pain, good FM, FHR 130. Sono shows cephalic presentation with normal anatomy, EFW approx. 2.5?3 lbs. Plan: GTT before next visit, f/u sono in [place] 10/02, f/u visit after 10/04 to review results. Offered intro to other providers. 10/31/24 <del>?</del> 36w 5d 119.011 kg 108/69 occasional unknown 35 145 No contractions, LOF, VB and reports good FM. Denies MOODY, VC, and epigastric pain. - Schedule primary on November 16 at 12:30 PM due to breech presentation, pending review of ultrasound report from [facility] - Patient to perform self-administered vaginal swab - Follow up on ultrasound report from [facility] 11/07/24 <del>?</del> 37w 5d 119.918 kg 116/75 occasional breech 38 145 Patient reports contractions and back pain. Reports good FM. Denies MOODY, VC, and epigastric pain. Problem List - Breech presentation - , 37 weeks and 5 days - Low back pain Plan - [facility] - Nurses to be notified of patient's arrival - Patient to be monitored and rechecked after 2 hours to assess for labor progression - If labor is progressing, patient may deliver today - If not delivering today, scheduled on November 16 at 12:30 PM (patient to arrive at 10:00 AM) - No food, drink, or medications after midnight the night before PETER Calculator Estimated Delivery Date Method Current WG Current Estimate 11/23/24 Ultrasound #1 43w 3d Other Estimates 11/25/24 LMP (Uncertain) 43w 1d HPI Interval History: Terri Rosario presents for a visit approximately 4 weeks after undergoing a on November 16, 2024, due to breech presentation. The patient reports that her incision has healed well, with no openings or discharge. She denies any current concerns or questions regarding her recovery. She is currently her , combining direct with pumping and bottle-feeding expressed breast milk. She mentions that her milk production was initially low but has recently improved. The patient expresses interest in starting control and inquires about when she can safely begin. Additionally, she asks about the expected duration of her maternity leave following the . She has an obstetric history of G1 T1 L1. She delivered a healthy via on November 16, 2024 for breech presentation and is currently 4 weeks . The patient is currently on maternity leave and expected to return to work on January 27. She recently gave and has a approximately 4 weeks old. ROS: Genitourinary: Negative for incision drainage. Exam General General Appearance: alert, in no apparent distress and healthy appearing Head Head exam: atraumatic Neck Neck exam: Present normal inspection and trachea midline Chest Chest inspection: Present normal inspection and symmetric chest wall rise External exam: Present normal external exam; Absent tenderness Neuro Neurological exam: Present oriented X3 Psych Psychiatric exam: Present normal affect and normal mood Office Procedures OB Clinic LOC & Office Proc's Nursing/Assessment Patient Status: Established Patient OB Clinic Nursing Assessment: Medication Reconciliation, Update PMH in EMR and Vital Signs OB Clinic Coordination of Care: Education Complex Pt/Fam, Consent,records obtained, informed consent, Lab and Imaging orders, Results/Orders obtained and Staff clarify orders Established Patient Charge Established Patient Point Assignment: 85 Post Follow-up Visit Post Follow up Visit: Yes Assessment & Plan Diagnosis / Problem List (1) Routine Follow-Up: Plan status post section: - 4 weeks following section for breech presentation. - Incision has healed well with no signs of infection or dehiscence. - Patient reports no concerns or complications. Plan: - Follow-up appointment scheduled for 2 months . - Assess incision at next appointment. - Cleared for resumption of sexual activity when patient feels comfortable and pain-free. - Return to work clearance for January 27, 2025 (approximately 2 months ). : - Patient is currently and pumping breast milk. - Reports initial difficulties with milk production, but now notes improvement in milk supply. Plan: - Encourage continuation of as long as possible. - Educate on health benefits of for both mother and . Contraceptive Counseling: - Patient inquired about initiating control. Plan: - Defer initiation of hormonal contraception until 8 weeks to avoid potential impact on breast milk production. - Recommend condom use if becoming sexually active before initiating hormonal contraception. - Discuss and prescribe control at 2-month visit. (FP) Tobacco Smoking Status: Never smoker
[2024-12-12 10:27] VITALS: BP 132/78; PULSE 70; RESP 16; TEMP 36.8; O2SAT 98
== END 2024-12-12 10:31 | disposition home or self-care (01) ==
LOC: HODSOBC 10:11
PROVIDERS: PCP Obstetrics & Gynecology; Referring Provider Obstetrics & Gynecology; Supervising Provider Obstetrics & Gynecology; Visit Provider Obstetrics & Gynecology
DX: Z39.2 Encounter for routine postpartum follow-up (principal); Z39.1 Encounter for care and examination of lactating mother; Z30.09 Encounter for other general counseling and advice on contraception
CPT/HCPCS: 59430; 99213; G0463

== ENCOUNTER 2025-01-16 09:44 | Outpatient (AMB) | payer MEDICAID, SELFPAY ==
--- NOTE | 2025-01-16 09:45 | AMBOBPPN_ITS ---
Vital Signs 01/16/25 09:51 Height 1.52 m Height Method Stated Weight 112.491 kg Weight Measurement Method Standing Scale BMI 48.6 BP 131/76 H Blood Pressure Source Automatic Cuff Blood Pressure Location Left Upper Arm Position Sitting Respiration 18 Pulse 70 Pulse Source Monitor Temp 97 F Temp Source Oral Pulse Oximetry (%) 96 Oxygen Delivery Method Room Air Allergies/Home Meds Allergies & Medications Allergies amoxicillin Allergy (Severe, Verified 01/16/25 09:53) Hives Medication Reconciliation vitamins with calcium no.72-iron 27 mg-folic acid 1 mg tablet ( Plus (calcium carbonate)) 1 tab PO QDAY 90 days #90 tabs 07/18/24 [Rx Confirmed 01/16/25] enoxaparin 40 mg/0.4 mL subcutaneous syringe (Lovenox) 40 mg (0.4 mL) subcut Q24H #4 mL 11/18/24 [Rx Confirmed 01/16/25] etonogestrel 0.12 mg-ethinyl estradiol 0.015 mg/24 hr vaginal ring (NuvaRing) 1 vag ring vaginal .compex 84 days #3 ea 01/16/25 [Rx] Intake Visit Data Collection New Patient or Established: Established Patient (seen at [facility] within 3 years) Reason for Visit:: / WANTS NUVARING Seen by Clinical Staff ONLY (RN/MA): No Database Development 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 Required: No Do You Feel Safe at Home: Yes Authorities Contacted: N/A PCP or OBGYN visit in last 3 months: Yes Date of Last PCP or OBGYN visit: 12/12/24 Hx Now: No Are you currently on any form of Control: No Pain Present Currently: No Pain Scale Used: [place]/Numerical Pain scale:: 0 Smoking Status Smoking Status: Never smoker Immunizations Flu Vaccine in the Last 12 Months: No Flu Vaccine Exclusion Criteria: No 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 Criteria 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: Past Medical History Past Medical History: No Hx Neurological Disorders, No Hx Cardiac Disorders, No Hx Cancer, No Hx Blood Disorders, No Hx Anemia, No Hx Gastrointestinal Disorders, No Hx Renal Disease, No Hx Diabetes Mellitus Type 1 and No Hx Diabetes Mellitus Type 2 Questionnaires Covid-19 Vaccine Questionnaire Has patient been vacinated for Covid-19 Have you been vacinated for Covid-19: Yes Social History Living Situation History Marital Status: Single Lives With: Family Housing: House Tobacco History Smoking Status: Never smoker Second Hand Smoke Exposure: No Alcohol History Alcohol Intake: Never Domestic Abuse History Do You Feel Safe at Home: Yes EPDS - PP Depression Screening [place] Pospartum Depression Screen I have been able to laugh and see the funny side of things: (0) As much as I always could I have looked forward with enjoyment to things: (0) As much as I ever did I have blamed myself unnecessarily when things went wrong: (0) No, never I have been anxious or worried for no good reason: (0) No, not at all I have felt scared or panicky for no very good reason: (0) No, not at all Things have been getting on top of me: (0) No, I have been coping as well as ever I have been so unhappy that I have had difficulty sleeping: (0) No, not at all I have felt sad or miserable: (0) No, not at all I have been so unhappy that I have been crying: (0) No, never The thought of harming myself has occurred to me: (0) Never Total Score: EPDS Score: Referral is indicated for score of 9 or more, suicidal, or if provider believes patient is depressed regardless of score.: 0 EPDS completed yes Care OB Visit Log OB Flowsheet Initial Weight: Not Recorded Date -?-?-?-?-?-?-?-?-?-?-?-?- EGA Weight BP Alb Glu CTX Pres Fundal ht FHR Mov Dilation Station Effacement Hx Notes Visit Note 07/18/24 -?-?-?-?-?-?-?-?-?-?-?-?- 21w 5d 109.429 kg 112/76 Estimated Due Date Summary LMP104/20/2024EDD by LMP11/25/2024 Ultrasound #104, 21w5d (bedside) PETER by US #108 Final EDD5Basis for Final EDDLM P 09/15/24 -?-?-?-?-?-?-?-?-?-?-?-?- 30w 1d 114.475 kg 104/69 occasional unknown 31 145 at 30w1d with improved back pain, good FM, FHR 130. Sono shows cephalic presentation with normal anatomy, EFW approx. 2.5?3 lbs. Plan: GTT before next visit, f/u sono in [place] 10/02, f/u visit after 10/04 to review results. Offered intro to other providers. 10/31/24 -?-?-?-?-?-?-?-?-?-?-?-?- 36w 5d 119.011 kg 108/69 occasional unknown 35 145 No contractions, LOF, VB and reports good FM. Denies MOODY, VC, and epigastric pain. - Schedule primary on November 16 at 12:30 PM due to breech presentation, pending review of ultrasound report from [facility] - Patient to perform self-administered v aginal swab - Follow up on ultrasound report from [facility] 11/07/24 -?-?-?-?-?-?-?-?-?-?-?-?- 37w 5d 119.918 kg 116/75 occasional breech 38 145 Patient reports contractions and back pain. Reports good FM. Denies MOODY, VC, and epigastric pain. Problem List - Breech presentation - , 37 weeks and 5 days - Low back pain Plan - Patient to proceed to 4th floor of [facility] for monitoring and evaluation - Nurses to be notified of patient's arr ival - Patient to be monitored and rechecked after 2 hours to assess for labor progression - If labor is progressing, patient may d eliver today - If not delivering today, scheduled C-s ection on November 16 at 12:30 PM (patient to arrive at 10:00 AM) - No food, drink, or medications after m idnight the night before PETER Calculator Estimated Delivery Date Method Current WG Current Estimate 11/23/24 Ultrasound #1 47w 5d Other Estimates 11/25/24 LMP (Uncertain) 47w 3d Office Procedures OBC Clinic LOC & Office Proc's Nursing/Assessment Patient Status: Established Patient OB Clinic Nursing Assessment: Medication Reconciliation, Update PMH in EMR and Vital Signs OB Clinic Coordination of Care: Consent,records obtained, informed consent, Education Simp Pt/Fam, Lab and Imaging orders and Staff clarify orders Special Needs: Heart tones Established Patient Charge Established Patient Point Assignment: 105 Established Patient Point Charge: EP Level 3 (80-115) Assessment & Plan Diagnosis / Problem List (1) Morbid obesity with BMI of 40.0-44.9, adult: Status: Acute (2) section wound complication: Status: Acute (3) Encounter for initial prescription of contraceptive pills: Status: Acute
[2025-01-16 09:51] VITALS: BP 131/76; PULSE 70; RESP 18; TEMP 36.1; O2SAT 96; BMI 48.6
== END 2025-01-16 10:42 | disposition home or self-care (01) ==
LOC: HODSOBC 09:44
PROVIDERS: Supervising Provider Obstetrics & Gynecology; Visit Provider Obstetrics & Gynecology
DX: Z39.2 Encounter for routine postpartum follow-up (principal); Z30.011 Encounter for initial prescription of contraceptive pills; O99.215 Obesity complicating the puerperium; E66.01 Morbid (severe) obesity due to excess calories; Z88.0 Allergy status to penicillin
CPT/HCPCS: 99213; G0463